=== PATIENT | male | born 1960 | race Caucasian/White ===

== ENCOUNTER 2024-07-19 15:29 | Observation (INO) | payer OTHER ==
--- OUTSIDE RECORDS SUMMARY | 2024-07-19 15:32 | XMS REPORT | Continuity of Care Document ---
Author Name Unknown Address [address] [facility] [address] [place] [address] [facility] thconnect Address [address] [facility] [address] [place] [address] Care Team Providers Care Test Kitchen Home Economist Name Role Phone Cecy ROMATresa Primary Care Physician [phone] Josué Crouch Attending Clinician Unavailable Jasson Pretty Attending Clinician Unavailable Pao Villagomez Attending Clinician Unavai isauro Provider, Viviana Rubin Attending Clinician Long Chu Attending Clinician Unavailable Long Hardy Admitting Clinician Unavailable Payers Payer Name Policy Type Policy Number Effective Date Expirati on Date Source Problems Condition Name Condition Details Condition Category Status Onset Date Resolution Date Last Treatment Date Treating Clinician Comments Source Problem Condition [facility] ([place] Allergies, Adverse Reactions, Alerts Allergy Name Allergy Type Status Severity Reaction(s) Onset Date Inactive Date Treating Clinician Comments Source codeine Propensi ty to adverse reaction to drug Active 2023-09 005 00:00: 00 Omar Espino venlafax ine DA Active U 9 00:00: 00 STLSJX codeine DA Active SV Anaphylaxis 6 00:00: 00 STLSJX codeine Allergy to substanc e Active [facility] ([place]) Family History Family Member Diagnosis Comments Start Date Stop Date [facility] e Father Family Coronary Jana ry Disease? Yes [facility] ([place]) Father Family Diabetes? Yes [facility] ([place]) Social History Social Habit Start Date Stop Date Quantity Comments Source Sex Assigned At 1960 00:00:00 1960 00:00:00 Male [facility] ([place]) Smoking Status Start Date Stop Date Source Unknown if ever smoked [facility] ([place]) Medications Ordered Medication Name Filled Medication Name Start Date Stop Date Current Medication? Ordering Clinician Indication Dosage Frequency Signature (SIG) Comments Components Source cyclobenzap rine 10 mg tablet 2023-09 00:00: 00 Yes 1mg Omar Espino ibuprofen 600 mg tablet 2023-09 0 00:00: 00 Yes 1mg Omar Espino metformin ER 500 mg tablet,exte nded release 24 hr 03-16 00:00: 00 Yes 1mg Omar Espino terazosin 10 mg capsule 03-16 00:00: 00 Yes 1mg Omar Espino tamsulosin 0.4 mg capsule - 00:00: 00 Yes 1mg Omar Espino carbamazepi ne 200 mg tablet - 00:00: 00 Yes mg Omar Espino duloxetine 30 mg capsule,del ayed release - 00:00: 00 Yes mg Omar Espino gabapentin 600 mg tablet - 00:00: 00 Yes mg Omar Espino aripiprazol e 10 mg tablet 11-05 00:00: 00 Yes mg Omar Espino TAKE ONE (1) CAPSULE(S) BY MOUTH EVERY MORNING. 11-05 00:00: 00 Yes Omar Espino TAKE TWO (2) TABLET(S) BY MOUTH EVERY MORNING. 11-05 00:00: 00 Yes Omar Espino TAKE ONE (1) CAPSULE(S) BY MOUTH MORNING. 11-05 00:00: 00 Yes Omar Espino TAKE ONE (1) TABLET(S) BY MOUTH THREE TIMES A DAY. 14 00:00: 00 Yes Omar Espino TAKE ONE (1) TABLET(S) BY MOUTH EVERY MORNING. 2022-0918 00:00: 00 Yes Omar Espino Meloxicam Meloxicam 02-26 21:30: 00 Yes 7.5MG Daily [facility] ([place] Gabapentin Gabapentin 02-26 15:41: 00 Yes 900MG Three Times Daily [facility] ([place]) Omeprazole Omeprazole 02-26 15:41: 00 Yes 20MG Daily [facility] ([place]) Pravastatin Sodium Pravastatin Sodium 02-26 15:41: 00 Yes 10MG Bedtime [facility] ([place] Terazosin Hcl Terazosin Hcl 02-26 15:41: 00 Yes 2MG Daily [facility] ([place]) Carbamazepi ne Carbamazepi ne 02-26 15:41: 00 Yes 400MG Bedtime [facility] ([place] Divalproex Sodium Divalproex Sodium 02-26 15:41: 00 Yes 1500MG Bedtime [facility] ([place] Duloxetine Duloxetine 02-26 15:41: 00 Yes 30MG Bedtime [facility] ([place] Vital Signs Vital Name Observation Time Observation Value Comments S ource WEIGHT 2021-07-27 17:04:58 112.559348 kg HEIGHT 2021-07-27 17:04:58 182.88 cm WEIGHT 2021-07-27 17:03:04 112.194370 kg HEIGHT 2021-07-27 17:03:04 182.88 cm WEIGHT 2021-07-27 17:02:18 112.003006 kg HEIGHT 2021-07-27 17:02:18 182.88 cm WEIGHT 2021-07-27 16:58:25 112.194519 kg HEIGHT 2021-07-27 16:58:25 182.88 cm WEIGHT 2021-07-27 16:53:55 114.187242 kg HEIGHT 2021-07-27 16:53:55 182.88 cm WEIGHT 2021-07-27 16:53:44 114.171353 kg HEIGHT 2021-07-27 16:53:44 182.88 cm WEIGHT 2021-07-27 16:53:26 114.726466 kg HEIGHT 2021-07-27 16:53:26 182.88 cm WEIGHT 2021-07-27 16:49:42 114.067442 kg HEIGHT 2021-07-27 16:49:42 182.88 cm WEIGHT 2021-07-27 16:49:21 114.801515 kg HEIGHT 2021-07-27 16:49:21 182.88 cm WEIGHT 2021-07-27 16:49:10 114.821955 kg HEIGHT 2021-07-27 16:49:10 182.88 cm WEIGHT 2021-07-27 16:48:39 114.177273 kg HEIGHT 2021-07-27 16:48:39 182.88 cm WEIGHT 2020-03-01 05:59:00 112.870434 kg HEIGHT 2020-03-01 05:59:00 182.88 cm BP Systolic 2024-06-26 14:44:00 155 mm[Hg] Step hen F Srinivas BP Diastolic 2024-06-26 14:44:00 91 mm[Hg] Quang phen F Srinivas Weight Measured 2024-06-26 14:44:00 234.80 pounds Omar F Srinivas Height Measured 2024-06-26 14:44:00 73.00 inches Omar F Srinivas Body Temperature 2024-06-26 14:44:00 98.40 degrees Omar F Srinivas Heart Rate 2024-06-26 14:44:00 77.00 /min Hailee en F Srinivas Respiratory Rate 2024-06-26 14:44:00 20.00 /min Omar F Srinivas BP Systolic 2024-03-16 17:55:00 134 mm[Hg] Step hen F Srinivas BP Diastolic 2024-03-16 17:55:00 85 mm[Hg] Quang phen F Srinivas Weight Measured 2024-03-16 17:55:00 252.40 pounds Omar F Srinivas Height Measured 2024-03-16 17:55:00 73.00 inches Omar F Srinivas Body Temperature 2024-03-16 17:55:00 98.10 degrees Omar Espino Heart Rate 2024-03-16 17:55:00 113.00 /min Step hen F Srinivas Respiratory Rate 2024-03-16 17:55:00 18.00 /min Omar F Srinivas Respiratory Rate 2024-02-11 14:22:00 18.00 /min Omraevita Espino BP Systolic 2024-02-11 14:22:00 142 mm[Hg] Step hen F Srinivas BP Diastolic 2024-02-11 14:22:00 78 mm[Hg] Quang phen F Srinivas Weight Measured 2024-02-11 14:22:00 236.40 pounds Omar Espino Height Measured 2024-02-11 14:22:00 73.00 inches Omar Espino Body Temperature 2024-02-11 14:22:00 98.20 degrees Omar Espino Heart Rate 2024-02-11 14:22:00 98.00 /min Hailee en F Srinivas Heart Rate 2020-02-27 23:16:00 78 /min [facility] ([place]) Oxygen saturation by Pulse oximetry 2020-02-27 22:58:00 97 /min [facility] ([place]) Body Temperature 2020-02-27 20:46:00 98.5 [degF] [facility]. [facility]. [place] ([place]) Respiratory rate 2020-02-27 20:46:00 17 /min [facility]. [facility]. [place] ([place] BP Systolic 2020-02-27 20:46:00 142 mm[Hg] [facility] [place] ([place] BP Diastolic 2020-02-27 20:46:00 76 mm[Hg] [facility]. [facility] [place] ([place]) Height 2020-02-27 10:40:00 182.88 cm [facility] S [facility] [place] ([place]) Weight 2020-02-27 10:40:00 114.98 kg [facility] S [facility]. [place] ([place]) BMI (Body Mass Index) 2020-02-27 10:40:00 34.4 kg/m2 [facility] ([place]) Procedures Procedure Date / Time Performed Performing Clinicia n Source XR Chest 1 View Portable 2020-02-27 00:00:00 [facility] ([place]) EKG 12 Lead in Emergency Room 2020-02-27 00:00:00 [facility] ([place] Encounters Start Date/Time End Date/Time Encounter Type Admission Type Attending [facility] Care Department Encounter ID Source 2024-07-07 09:35:14 2024-07-07 09:35:14 Outpatient [facility] [id number] Omar Espino 2024-06-26 14:28:21 2024-06-26 14:28:21 Outpatient [facility] [id number] Omar Espino 2024-06-26 00:00:00 2024-06-26 00:00:00 Outpatient Visit [facility] [id number] Omar Espino 2024-06-04 11:23:16 2024-06-04 11:23:16 Outpatient [facility] [id number] Omar Espino 2024-04-12 14:50:10 2024-04-12 14:50:10 Outpatient [facility] [id number] Omar Espino 2024-03-16 17:43:01 2024-03-16 17:43:01 Outpatient [facility] [id number] Omar Espino 2024-03-16 00:00:00 2024-03-16 00:00:00 Outpatient Visit [facility] [id number] Omar Espino 2024-02-11 14:18:40 2024-02-11 14:18:40 Outpatient [facility] [id number] Omar Barba Srinivas 2024-02-11 00:00:00 2024-02-11 00:00:00 Outpatient Visit [facility]FA [id number] Omar Espino 2022-02-04 18:00:00 2022-02-04 21:20:00 Emergency TRAUMA Josué Crouch STLSJX STLSJX [id number] STLSJX 2022-01-03 00:05:00 2022-01-03 04:50:00 Emergency ER Jasson Pretty STLSJX STLSJX [id number] STLSJX 2021-10-28 12:18:00 2021-10-28 13:50:00 Emergency ER Pao Villagomez [facility] [id number] [facility] 2020-02-27 15:03:00 2020-03-02 13:34:00 [facility] [id number] [facility] 2020-02-27 15:03:00 2020-02-27 15:03:00 Admitted Inpatient ER [facility]-2SW/OBS ERVATION [id number] [facility]) Results Test Description Test Time Test Comments Results Result Co mments Source COMPREHENSIVE METABOLIC [id number] 04:37:07* Test Item Value Reference Range Interpretation Comme nts GLUCOSE (test code = 2217) 129 MG/DL 70-99 H BUN (test code = 2208) 17 MG/DL 8-23 CREATININE (test code = 2214) 1.12 MG/DL 0.80-1.40 eGFR (2020 CKD-EPI) (test co de = 07548) 74 ML/MIN/1.73 >60 CALC BUN/CREAT (test code = 2235) 15 RATIO 6-28 SODIUM (test code = 2231) 138 MEQ/L 133-146 POTASSIUM (test code = 2228) 4.4 MEQ/L 3.5-5.4 CHLORIDE (test code = 2215) 101 MEQ/L 95-107 CARBON DIOXIDE (test code = 2206) 25 MEQ/L 19-31 CALCIUM (test code = 2209) 9.8 MG/DL 8.5-10.5 PROTEIN, TOTAL (test code = 222) 7.3 G/DL 6.1-8.3 ALBUMIN (test code = 2201) 4.5 G/DL 3.5-5.2 CALC GLOBULIN (test code = 2240) 2.8 G/DL 1.9-3.7 CALC A/G RATIO (test code = 2234) 1.6 RATIO 1.0-2.6 BILIRUBIN, TOTAL (test code = 2207) 0.3 MG/DL <=1.2 ALKALINE PHOSPHATASE (test code = 2204) 98 U/L 40-123 AST (test code = 2218) 19 U/L 9-50 ALT (test code = 2219) 19 U/L 5-50 LIPID [id number] 04:37:07* Test Item Value Reference Range Interpretation Comme nts CHOLESTEROL (test code = 2210) 197 MG/DL <200 TRIGLYCERIDES (test code = 2232) 113 MG/DL <150 HDL CHOLESTEROL (test code = 2220) 50 MG/DL >39 CALC LDL CHOL (test code = 2237) 125 MG/DL <100 H NOTE: CALCULATED LDL IS BASED ON GINGER-BLACK METHOD WHICHINCLUDES ADJUSTABLE TRIGLYCERIDE:VLDL CHOLESTEROL RATIO.THIS FACTOR VARIES BY MEASURED TRIGLYCERIDE AND NON-HDLCHOLESTEROL CONCENTRATIONS WITH INCREASED CALCULATED LDL SEENIN HIGHER TRIGLYCERIDE OR LOWER NON-HDL SPECIMENS. FOR MOREINFORMATION, SEE CLIENT ANNOUNCEMENT AT [email or web address] RISK RATIO LDL/HDL (test code = 2238) 2.50 RATIO <3.55 HIV 1/2 4TH GEN, RFLX [id number] 03:21:19* Test Item Value Reference Range Interpretation Comme nts HIV 1/2 4TH GEN, RFLX CONF ( test code = 3514) NON-REACTIVE NON-REACTIVE HEMOGLOBIN [id number] 02:40:37* Test Item Value Reference Range Interpretation Comme [facility] HEMOGLOBIN A1c (test code = 96467) 6.5 % 4.2-5.6 H [employer] GUIDELINES FOR HGB A1C: PREDIABETES/INCREASED RISK . . . . . . . 5.7-6.4% DIAGNOSIS OF DIABETES . . . . . . . . . >=6.5% WITH CONFIRMATION OR APPROPRIATE SYMPTOMS NOTE: ASSAY MAY BE AFFECTED BY HEMOGLOBINOPATHIES (SICKLE CELL ANEMIA, S-C DISEASE, OTHERS) OR ARTIFICIALLY LOWERED BY DECREASED RED CELL SURVIVAL (HEMOLYTIC ANEMIAS, BLOOD LOSS, ETC.). CONSIDER ALTERNATE TESTING OR LABORATORY CONSULTATION. [id number] 13:44:00* Test Item Value Reference Range Interpretation Comme nts Chemistry (test code = NA-T) 138 mmol/L 136-145 N Chemistry (test code = K-T) 4.2 mmol/L 3.5-5.1 N Chemistry (test code = CL) 106 mmol/L 98-107 N Chemistry (test code = CO2) 23 mmol/L 22-29 N Chemistry (test code = ANGP) 13 mmol/L 10-20 N Chemistry (test code = BUN) 11 mg/dL 8.4-25.7 N Chemistry (test code = CREATT) 0.82 mg/dL 0.7-1.3 N Chemistry (test code = EGFRMDRD) Greater than 90 Reference Range for Estimated GFR: Greater than 90 mL/min/1.73 m2NOTE:The MDRD equation has not been validated for use with theelderly (over 70 years of age), women, patientswith serious comorbid condition or persons with extremes ofbody size, muscle mass, or nutritional status. Chemistry (test code = GLU-T) 110 mg/dL 70-105 H Chemistry (test code = CA) 9.0 mg/dL 7.8-10.44 N Chemistry (test code = TBILI-T) 0.5 mg/dL 0.2-1.2 N Chemistry (test code = TP) 6.9 g/dL 6.0-8.3 N Chemistry (test code = ALB) 4.3 g/dL 3.5-5.0 N Chemistry (test code = GLOB) 2.6 g/dL 2.4-3.5 N Chemistry (test code = AG) 1.7 g/dL 1.2-2.2 N Chemistry (test code = ALP) 85 U/L 40-110 N Chemistry (test code = AST) 12 U/L 5-34 N Chemistry (test code = ALT) 20 U/L 8-55 N [id number] 13:44:00* Test Item Value Reference Range Interpretation Comme nts Chemistry (test code = CK) 69 U/L 30-200 N [id number] 13:44:00* Test Item Value Reference Range Interpretation Comme nts Chemistry (test code = LIP) 17 U/L 8-78 N [id number] 13:35:00* Test Item Value Reference Range Interpretation Comme nts Chemistry (test code = TROPI-R) Less than 0.010 ng/mL < 0.028 * Reference Range 0.00 - 0.028 ng/mL Negative 0.029 - 0.29 ng/mL Indeterminate Greater or Equal to 0.3 ng/mL Strongly suggests [place] Chemistry - BNP, HgbA1c, [id number] 13:34:00* Test Item Value Reference Range [facility]ation [facility] - BNP, HgbA1c, PTH i (test code = BNP) 88.1 pg/mL 0-100 N [id number] 13:19:00* Test Item Value Reference Range Interpretation [facility] Coagulation (test code = PT-T) 14.1 sec 12.0-14.7 N Coagulation (test code = INR) 1.1 ATTENTION: READ CAREFULLY The recommended therapeutic ranges for oral anticoagulanttreatments are: ------ Low Intensity: 1.5 - 2.0 Moderate Intensity: 2.0 - 3.0 High Intensity (1): 2.5 - 3.5 High Intensity (2): 3.0 - 4.0 CRITICAL: > 4.0 Anticoagulant? NONEMedical Necessity SUSPECT COAGULOPATHYAnticoagulant? NONEMedical Necessity: [id number] 13:19:00* Test Item Value Reference Range Interpretation [facility] Coagulation (test code = PTT) 28.7 sec 22.9-36.1 N Anticoagulant? NONEMedical Necessity SUSPECT COAGULOPATHYAnticoagulant? NONEMedical Necessity: [id number] 13:05:00* Test Item Value Reference Range Interpretation Comme nts Hematology (test code = WBCT) 5.4 thou/uL 4.8-10.8 N Hematology (test code = RBCT) 4.61 mill/uL 4.70-6.10 L Hematology (test code = HGBT) 13.6 g/dL 14.0-18.0 L Hematology (test code = HCTT) 40.5 % 42.0-52.0 L Hematology (test code = MCV) 87.9 fL 78.0-98.0 N Hematology (test code = MCH) 29.5 pg 27.0-31.0 N Hematology (test code = MCHC) 33.6 g/dL 32.0-36.0 N Hematology (test code = RDW) 11.8 % 11.5-14.5 N Hematology (test code = PLTT) 224 thou/uL 130-400 N Hematology (test code = MPV) 6.7 fL 7.4-10.4 L Hematology (test code = %NEUT) 55.1 % 42.0-75.0 N Hematology (test code = %LYMPH) 34.9 % 21.0-51.0 N Hematology (test code = %MONO) 7.2 % 0.0-10.0 N Hematology (test code = %EOS) 2.6 % 0.0-10.0 N Hematology (test code = %BASO) 0.3 % 0.0-1.0 N Hematology (test code = NEUT#) 3.0 thou/uL 1.40-6.50 N Hematology (test code = LYMPH#) 1.9 thou/uL 1.20-3.40 N Hematology (test code = MONO#) 0.4 thou/uL 0.11-0.59 N Hematology (test code = EOS#) 0.1 thou/uL 0.0-0.7 N Hematology (test code = BASO#) 0.0 thou/uL 0.0-0.2 N [id number] 05:52:00* Test Item Value Reference Range Interpretation Comme nts Chemistry (test code = NA-T) 139 mmol/L 136-145 N Chemistry (test code = K-T) 4.6 mmol/L 3.5-5.1 N Chemistry (test code = CL) 105 mmol/L 98-107 N Chemistry (test code = CO2) 26 mmol/L 22-29 N Chemistry (test code = ANGP) 13 mmol/L 10-20 N Chemistry (test code = BUN) 15 mg/dL 8.4-25.7 N Chemistry (test code = CREATT) 0.81 mg/dL 0.7-1.3 N Chemistry (test code = EGFRMDRD) Greater than 90 Reference Range for Estimated GFR: Greater than 90 mL/min/1.73 m2NOTE:The MDRD equation has not been validated for use with theelderly (over 70 years of age), women, patientswith serious comorbid condition or persons with extremes ofbody size, muscle mass, or nutritional status. Chemistry (test code = GLU-T) 118 mg/dL 70-105 H Chemistry (test code = CA) 8.1 mg/dL 7.8-10.44 N [id number] 05:52:00* Test Item Value Reference Range Interpretation Comme nts Chemistry (test code = MG) 2.2 mg/dL 1.6-2.6 N [id number] 05:21:00* Test Item Value Reference Range Interpretation Comme nts Hematology (test code = HGBT) 12.6 g/dL 14.0-18.0 L Hematology (test code = HCTT) 37.9 % 42.0-52.0 L Hematology (test code = PLTT) 195 thou/uL 130-400 N [id number] 06:05:00* Test Item Value Reference Range Interpretation Comme nts Chemistry (test code = NA-T) 141 mmol/L 136-145 N Chemistry (test code = K-T) 4.4 mmol/L 3.5-5.1 N Chemistry (test code = CL) 105 mmol/L 98-107 N Chemistry (test code = CO2) 28 mmol/L 22-29 N Chemistry (test code = ANGP) 12 mmol/L 10-20 N Chemistry (test code = BUN) 15 mg/dL 8.4-25.7 N Chemistry (test code = CREATT) 0.76 mg/dL 0.7-1.3 N Chemistry (test code = EGFRMDRD) Greater than 90 Reference Range for Estimated GFR: Greater than 90 mL/min/1.73 m2NOTE:The MDRD equation has not been validated for use with theelderly (over 70 years of age), women, patientswith serious comorbid condition or persons with extremes ofbody size, muscle mass, or nutritional status. Chemistry (test code = GLU-T) 109 mg/dL 70-105 H Chemistry (test code = CA) 8.5 mg/dL 7.8-10.44 N [id number] 05:44:00* Test Item Value Reference Range Interpretation Comme nts Hematology (test code = WBCT) 4.3 thou/uL 4.8-10.8 L Hematology (test code = RBCT) 4.45 mill/uL 4.70-6.10 L Hematology (test code = HGBT) 12.6 g/dL 14.0-18.0 L Hematology (test code = HCTT) 38.9 % 42.0-52.0 L Hematology (test code = MCV) 87.4 fL 78.0-98.0 N Hematology (test code = MCH) 28.4 pg 27.0-31.0 N Hematology (test code = MCHC) 32.5 g/dL 32.0-36.0 N Hematology (test code = RDW) 11.5 % 11.5-14.5 N Hematology (test code = PLTT) 184 thou/uL 130-400 N Hematology (test code = MPV) 7.2 fL 7.4-10.4 L Hematology (test code = %NEUT) 43.6 % 42.0-75.0 N Hematology (test code = %LYMPH) 40.6 % 21.0-51.0 N Hematology (test code = %MONO) 12.8 % 0.0-10.0 H Hematology (test code = %EOS) 2.4 % 0.0-10.0 N Hematology (test code = %BASO) 0.7 % 0.0-1.0 N Hematology (test code = NEUT#) 1.9 thou/uL 1.40-6.50 N Hematology (test code = LYMPH#) 1.8 thou/uL 1.20-3.40 N Hematology (test code = MONO#) 0.6 thou/uL 0.11-0.59 H Hematology (test code = EOS#) 0.1 thou/uL 0.0-0.7 N Hematology (test code = BASO#) 0.0 thou/uL 0.0-0.2 N Reference Lab [id number] 14:19:00* Test Item Value Reference Range Interpretation Comme [facility] Reference Lab Testing (test code = BNJEV20D) Not Detected NotDetected Negative (Not D etected) results do not preclude infectionwith SARS-CoV-2 virus, and should not be the sole basis of apatient management decision. Consider testing for otherviruses if clinically indicated.The use of this assay as an In vitro diagnostic under [facility] Emergency Use Authorization (EUA) is limited tolaboratories that are certified under the ClinicalLaboratory Improvement Amendments of 1988 (CLIA), 42 U.S.C.263a, to perform high complexity tests. Comment: ReswabReason for Testing: Other - See CommentChemistry - Specials 2020-02-28 17:53:00* Test Item Value Reference Range Interpretation [facility] Chemistry - Specials (test code = PROCALC) 0.02 ng/mL <0.5 ng/mL Repre sents a low risk of severe sepsis and/or septic shock>2 ng/mL Represents a high risk of severe sepsis and/or septic shock.Concentrations <0.5 ng/mL do not exclude an infection, onaccount of localized infections (without septic signs) whichcan be associated with such low concentrations, or asystemic infection in its initial stages (less than 6hours).Increased procalcitonin can occur without infection.Procalcitonin concentrations between 0.5 and 2.0 ng/mLshould be interpreted taking into account the patient'shistory. It is recommended to retest Procalcitonin within6-24 hours if any concentrations <2 ng/mL are obtained. Reference Lab [id number] 14:14:00* Test Item Value Reference Range Interpretation Comme [facility] Reference Lab Testing (test code = TAVQD01L) Not Detected NotDetected Negative (Not D etected) results do not preclude infectionwith SARS-CoV-2 virus, and should not be the sole basis of apatient management decision. Consider testing for otherviruses if clinically indicated.The use of this assay as an In vitro diagnostic under [facility] Use Authorization (EUA) is limited tolaboratories that are certified under the ClinicalLaboratory Improvement Amendments of 1988 (CLIA), 42 U.S.C.263a, to perform high complexity tests. Comment: AsymptomaticReason for Testing: Other - See [id number] 20:28:00* Test Item Value Reference Range Interpretation Comme nts Chemistry (test code = TROPI-T) 0.016 ng/mL < 0.028 Reference Range 0.00 - 0.028 ng/mL Negative 0.029 - 0.29 ng/mL Indeterminate Greater or Equal to 0.3 ng/mL Strongly suggests [place] Serum or plasma troponin i.cardiac measurement by detection limit <= 0.01 NG/ml ([id number] 19:42:00* Test Item Value Reference Range Interpretation Comme nts Troponin I (test code = 68564-6) 0.016 ng/mL <0.028 [facility]Chemistry - [id number] 17:19:00* Test Item Value Reference Range Interpretation Comme nts Chemistry - Specials (test c ode = TSH3) 0.2457 uIU/mL 0.35-4.94 L [id number] 16:31:00* Test Item Value Reference Range Interpretation Comme nts Chemistry (test code = MG) 2.2 mg/dL 1.6-2.6 N [id number] 16:29:00* Test Item Value Reference Range Interpretation Comme nts Chemistry (test code = PHOS-T) 2.6 mg/dL 2.3-4.7 N [id number] 15:55:00* Test Item Value Reference Range Interpretation Comme nts Chemistry (test code = TROPI-T) 0.011 ng/mL < 0.028 Reference Range 0.00 - 0.028 ng/mL Negative 0.029 - 0.29 ng/mL Indeterminate Greater or Equal to 0.3 ng/mL Strongly suggests [place] Serum or plasma phosphate measurement (mass/volume)2020-02-27 15:22:00* Test Item Value Reference Range Interpretation Comme nts Phosphorus Level (test code = 2777-1) 2.6 mg/dL 2.3-4.7 [facility])Serum or plasma magnesium measurement (mass/volume)2020-02-27 15:22:00* Test Item Value Reference Range Interpretation Comme nts Magnesium Level (test code = 42266-0) 2.2 mg/dL 1.6-2.6 [facility])Serum or plasma thyrotropin measurement by detection limit <= 0.005 miu/l (units/[id number] 15:22:00* Test Item Value Reference Range Interpretation Comme nts TSH 3rd Generation (test cod e = 25602-2) 0.2457 uIU/mL 0.35-4.94 [facility])Chemistry - BNP, HgbA1c, [id number] 11:52:00* Test Item Value Reference Range Interpretation Comme nts Chemistry - BNP, HgbA1c, PTH i (test code = BNP) 100.0 pg/mL 0-100 N [id number] 11:30:00* Test Item Value Reference Range Interpretation Comme nts Chemistry (test code = TROPI-R) 0.010 ng/mL < 0.028 Reference Range 0.00 - 0.028 ng/mL Negative 0.029 - 0.29 ng/mL Indeterminate Greater or Equal to 0.3 ng/mL Strongly suggests [place] [id number] 11:26:00* Test Item Value Reference Range Interpretation Comme nts Chemistry (test code = NA-T) 138 mmol/L 136-145 N Chemistry (test code = K-T) 4.3 mmol/L 3.5-5.1 N Chemistry (test code = CL) 107 mmol/L 98-107 N Chemistry (test code = CO2) 22 mmol/L 22-29 N Chemistry (test code = ANGP) 13 mmol/L 10-20 N Chemistry (test code = BUN) 14 mg/dL 8.4-25.7 N Chemistry (test code = CREATT) 0.80 mg/dL 0.7-1.3 N Chemistry (test code = EGFRMDRD) Greater than 90 Reference Range for Estimated GFR: Greater than 90 mL/min/1.73 m2NOTE:The MDRD equation has not been validated for use with theelderly (over 70 years of age), women, patientswith serious comorbid condition or persons with extremes ofbody size, muscle mass, or nutritional status. Chemistry (test code = GLU-T) 122 mg/dL 70-105 H Chemistry (test code = CA) 7.9 mg/dL 7.8-10.44 N Chemistry (test code = TBILI-T) 0.3 mg/dL 0.2-1.2 N Chemistry (test code = TP) 6.5 g/dL 6.0-8.3 N Chemistry (test code = ALB) 3.6 g/dL 3.5-5.0 N Chemistry (test code = GLOB) 2.9 g/dL 2.4-3.5 N Chemistry (test code = AG) 1.2 g/dL 1.2-2.2 N Chemistry (test code = ALP) 67 U/L 40-110 N Chemistry (test code = AST) 16 U/L 5-34 N Chemistry (test code = ALT) 17 U/L 8-55 N Fwjnlzlol3111-34-99 11:26:00* Test Item Value Reference Range Interpretation Comme nts Chemistry (test code = CK) 48 U/L 30-200 N Dsukpumsx1827-56-18 11:26:00* Test Item Value Reference Range Interpretation Comme nts Chemistry (test code = LIP) 23 U/L 8-78 N Zfbmvsjgiz2018-32-46 11:18:00* Test Item Value Reference Range Interpretation Comme nts Hematology (test code = WBCT) 3.9 thou/uL 4.8-10.8 L Hematology (test code = RBCT) 4.70 mill/uL 4.70-6.10 N Hematology (test code = HGBT) 14.3 g/dL 14.0-18.0 N Hematology (test code = HCTT) 41.2 % 42.0-52.0 L Hematology (test code = MCV) 87.6 fL 78.0-98.0 N Hematology (test code = MCH) 30.4 pg 27.0-31.0 N Hematology (test code = MCHC) 34.7 g/dL 32.0-36.0 N Hematology (test code = RDW) 11.7 % 11.5-14.5 N Hematology (test code = PLTT) 139 thou/uL 130-400 N Hematology (test code = MPV) 7.2 fL 7.4-10.4 L Hematology (test code = %NEUT) 59.9 % 42.0-75.0 N Hematology (test code = %LYMPH) 26.5 % 21.0-51.0 N Hematology (test code = %MONO) 12.8 % 0.0-10.0 H Hematology (test code = %EOS) 0.5 % 0.0-10.0 N Hematology (test code = %BASO) 0.3 % 0.0-1.0 N Hematology (test code = NEUT#) 2.3 thou/uL 1.40-6.50 N Hematology (test code = LYMPH#) 1.0 thou/uL 1.20-3.40 L Hematology (test code = MONO#) 0.5 thou/uL 0.11-0.59 N Hematology (test code = EOS#) 0.0 thou/uL 0.0-0.7 N Hematology (test code = BASO#) 0.0 thou/uL 0.0-0.2 N Serum or plasma sodium measurement (moles/volume)2020-02-27 10:50:00* Test Item Value Reference Range Interpretation Comme nts Sodium Level (test code = 2951-2) 138 mmol/L 136-145 [facility]Serum or plasma potassium measurement (moles/volume)2020-02-27 10:50:00* Test Item Value Reference Range Interpretation Comme nts Potassium Level (test code = 2823-3) 4.3 mmol/L 3.5-5.1 [facility]Serum or plasma chloride measurement (moles/volume)2020-02-27 10:50:00* Test Item Value Reference Range Interpretation Comme nts Chloride Level (test code = 2075-0) 107 mmol/L 98-107 [facility])Serum or plasma carbon dioxide, total measurement (moles/volume)2020-02-27 10:50:00* Test Item Value Reference Range Interpretation Comme nts Carbon Dioxide Level (test c ode = 2028-9) 22 mmol/L 22-29 [facility])Serum or plasma anion uny8864-87-61 10:50:00* Test Item Value Reference Range Interpretation Comme [facility] Anion Gap (test code = 68317-8) 13 mmol/L 10-20 [facility])Serum or plasma urea nitrogen measurement (mass/volume)2020-02-27 10:50:00* Test Item Value Reference Range Interpretation Comme [facility] Blood Urea Nitrogen (test co de = 3094-0) 14 mg/dL 8.4-25.7 [facility])Serum or plasma creatinine measurement (mass/volume)2020-02-27 10:50:00* Test Item Value Reference Range Interpretation Comme [facility] Creatinine (test code = 2160-0) 0.80 mg/dL 0.7-1.3 [facility])Estimated glomerular filtration rate (GFR) by Modification of Diet in Renal Disease (2020-02-27 10:50:00* Test Item Value Reference Range Interpretation Comme [facility] Estimated GFR (MDRD) (test code = 22872-5) Greater than 90 [facility])Glucose [Mass/volume] in Serum or Plasma 2020-02-27 10:50:00* Test Item Value Reference Range Interpretation Comme [facility] Glucose Level (test code = 2345-7) 122 mg/dL 70-105 [facility])Serum or plasma calcium measurement (mass/volume)2020-02-27 10:50:00* Test Item Value Reference Range Interpretation Comme [facility] Calcium Level (test code = 91718-8) 7.9 mg/dL 7.8-10.44 [facility])Serum or plasma total bilirubin measurement (mass/volume)2020-02-27 10:50:00* Test Item Value Reference Range Interpretation Comme [facility] Total Bilirubin (test code = 1975-2) 0.3 mg/dL 0.2-1.2 [facility])Serum or plasma protein measurement (mass/volume)2020-02-27 10:50:00* Test Item Value Reference Range Interpretation Comme [facility] Serum Total Protein (test co de = 2885-2) 6.5 g/dL 6.0-8.3 [facility]Serum or plasma albumin measurement by bromocresol green (BCG) dye binding method (cv9530-34-59 10:50:00* Test Item Value Reference Range Interpretation Comme [facility] Albumin (test code = 09036-2) 3.6 g/dL 3.5-5.0 [facility])Globulin [Mass/volume] in Serum by calculation 2020-02-27 10:50:00* Test Item Value Reference Range Interpretation Comme nts Globulin (test code = 39823-6) 2.9 g/dL 2.4-3.5 [facility])Albumin/Globulin [Mass Ratio] in Serum or Ohivin1186-16-54 10:50:00* Test Item Value Reference Range Interpretation Comme [facility] Albumin/Globulin Ratio (test code = 1759-0) 1.2 g/dL 1.2-2.2 [facility]Alkaline phosphatase [Enzymatic activity/volume] in Serum or Xlkgas8802-10-69 10:50:00* Test Item Value Reference Range Interpretation Comme nts Alkaline Phosphatase (test c ode = 6768-6) 67 U/L 40-110 [facility]Serum or plasma aspartate aminotransferase measurement (enzymatic activity/volume)2020-02-27 10:50:00* Test Item Value Reference Range Interpretation Comme [facility] Aspartate Amino Transf (AST/ SGOT) (test code = 1920-8) 16 U/L 5-34 [facility]Creatine kinase [Enzymatic activity/volume] in Serum or Ablbtx1651-60-06 10:50:00* Test Item Value Reference Range Interpretation Comme nts Creatine Kinase (test code = 2157-6) 48 U/L 30-200 [facility])Serum or plasma alanine aminotransferase measurement without P-5'-P (enzymatic sxexpj6063-22-65 10:50:00* Test Item Value Reference Range Interpretation Comme nts Alanine Aminotransferase (AL T/SGPT) (test code = 1744-2) 17 U/L 8-55 [facility])Serum or plasma lipase measurement (enzymatic activity/volume)2020-02-27 10:50:00* Test Item Value Reference Range Interpretation Comme nts Lipase (test code = 3040-3) 23 U/L 8-78 [facility])Leukocytes [#/volume] in Blood by Automated povsp6180-85-61 10:50:00* Test Item Value Reference Range Interpretation Comme nts White Blood Count (test code = 6690-2) 3.9 thou/uL 4.8-10.8 [facility])Blood erythrocytes automated count (number/volume)2020-02-27 10:50:00* Test Item Value Reference Range Interpretation Comme nts Red Blood Count (test code = 789-8) 4.70 mill/uL 4.70-6.10 [facility])Blood hemoglobin measurement (mass/volume) 2020-02-27 10:50:00* Test Item Value Reference Range Interpretation Comme nts Hemoglobin (test code = 718-7) 14.3 g/dL 14.0-18.0 [facility])Automated erythrocyte mean corpuscular volume 2020-02-27 10:50:00* Test Item Value Reference Range Interpretation Comme nts Mean Corpuscular Volume (wojciech t code = 787-2) 87.6 fL 78.0-98.0 [facility])Automated erythrocyte mean corpuscular hemoglobin (mass per erythrocyte)2020-02-27 10:50:00* Test Item Value Reference Range Interpretation Comme nts Mean Corpuscular Hemoglobin (test code = 785-6) 30.4 pg 27.0-31.0 [facility])Automated erythrocyte mean corpuscular hemoglobin concentration measurement (mass/gbj5603-16-54 10:50:00* Test Item Value Reference Range Interpretation Comme nts Mean Corpuscular Hemoglobin Concent (test code = 786-4) 34.7 g/dL 32.0-36.0 [facility])Automated erythrocyte distribution width ratio 2020-02-27 10:50:00* Test Item Value Reference Range Interpretation Comme nts Red Cell Distribution Width (test code = 788-0) 11.7 % 11.5-14.5 [facility])Automated blood platelet count (count/volume) 2020-02-27 10:50:00* Test Item Value Reference Range Interpretation Comme [facility] Platelet Count (test code = 777-3) 139 thou/uL 130-400 [facility])Automated blood platelet mean perkeh8703-29-26 10:50:00* Test Item Value Reference Range Interpretation Comme [facility] Mean Platelet Volume (test c ode = 78845-6) 7.2 fL 7.4-10.4 [facility])Automated blood neutrophils/100 leukocytes 2020-02-27 10:50:00* Test Item Value Reference Range Interpretation Comme [facility] Neutrophils % (test code = 770-8) 59.9 % 42.0-75.0 [facility])Lymphocytes/100 leukocytes in Blood by Automated hgczh8947-49-62 10:50:00* Test Item Value Reference Range Interpretation Comme [facility] Lymphocytes % (test code = 736-9) 26.5 % 21.0-51.0 [facility])Automated blood monocytes/100 leukocytes 2020-02-27 10:50:00* Test Item Value Reference Range Interpretation Comme nts Monocytes % (test code = 5905-5) 12.8 % 0.0-10.0 [facility])Automated blood eosinophils/100 leukocytes 2020-02-27 10:50:00* Test Item Value Reference Range Interpretation Comme nts Eosinophils % (test code = 713-8) 0.5 % 0.0-10.0 [facility]Automated blood basophils/100 leukocytes 2020-02-27 10:50:00* Test Item Value Reference Range Interpretation Comme nts Basophils % (test code = 706-2) 0.3 % 0.0-1.0 [facility]Blood neutrophils automated count (number/volume)2020-02-27 10:50:00* Test Item Value Reference Range Interpretation Comme nts Neutrophils # (test code = 751-8) 2.3 thou/uL 1.40-6.50 [facility]Lymphocytes [#/volume] in Blood by Automated dbxga2779-42-06 10:50:00* Test Item Value Reference Range Interpretation Comme nts Lymphocytes # (test code = 731-0) 1.0 thou/uL 1.20-3.40 [facility]Blood monocytes automated count (number/volume)2020-02-27 10:50:00* Test Item Value Reference Range Interpretation Comme nts Monocytes # (test code = 742-7) 0.5 thou/uL 0.11-0.59 [facility]Blood eosinophils automated count (count/volume)2020-02-27 10:50:00* Test Item Value Reference Range Interpretation Comme nts Eosinophils # (test code = 711-2) 0.0 thou/uL 0.0-0.7 [facility]Automated blood basophil count (count/volume) 2020-02-27 10:50:00* Test Item Value Reference Range Interpretation Comme nts Basophils # (test code = 704-7) 0.0 thou/uL 0.0-0.2 [facility]CT Brain WO Con Name: ROSEMARY STAPLES : 1960 Sex: [facility] Pt Name: ROSEMARY STAPLES [address] Phys: [place]é [place] [address] : 1960 Age: 61 SEX:M Exam Date: 02/04/22 Status: REG ER Acct: [id number] Loc: [facility] Pt Unit #: [id number] Report #: [id number] CC: Josué Crouch CAT SCAN REPORT Order # Category/Exam [id number] CT/CT Brain WO Con ([id number]): . Results CT Brain WO Con HISTORY: Head injury COMPARISON: 10/28/2021 exam FINDINGS: The ventricular and cisternal system is within normal limits.There are no signs of intracerebral hemorrhage or extra-axial fluid collections. No skull fractures. Right frontal scalp hematoma is present. Mastoid air cells are clear. Mucosal disease and postop changes are seen within the sinuses. IMPRESSION: No acute intracranial abnormalities. Reported By: Gulshan Han MD Electronically Signed Date/Time: 02/04/221830 Technologist: MARY Dictated Date/Time: 02/04/221829 Transcribed Date/Time:CT Cervical Spine WO Con Name: ROSEMARY STAPLES : 1960 Sex: [facility] Pt Name: ROSEMARY STAPLES [address] [facility] Phys: Josué [place] [address] : 1960 Age: 61 SEX:M Exam Date: 02/04/22 Status: REG ER Acct: [id number] Loc: [facility] Pt Unit #: [id number] Report #: [id number] CC: Josué Crouch DO CAT SCAN REPORT Order # Category/Exam [id number] CT/CT Cervical Spine WO Con ([id number]): . Results CT Cervical Spine WO ConHISTORY: Neck injury COMPARISON: None. FINDINGS: Vertebral bodies are normal in height. Degenerative disc narrowing is seen at the C5-6 and C6-7 levels. At C5-6 posterior osteophytic changes are associated with a mild degree of canal stenosis. There ismoderate bilateral foraminal narrowing. No significant right-sided foraminal narrowing at C6-7. Mild left- sided foraminal narrowing and mild canalnarrowing. The facets are in normal alignment. There is no CT evidence for fracture. The lung apices are clear of any infiltrative process. IMPRESSION: No CT evidence of fracture of the cervical spine. Reported By: Gulshan Han MD Electronically Signed Date/Time: 02/04/221833 Technologist: MARY Dictated Date/Time: 02/04/221831 Transcribed Date/Time:XR Chest 1 View Portable Name: ROSEMARY STAPLES : 1960 Sex: [facility] Pt Name: ROSEMARY STAPLES [address] Phys: [place] [address] : 1960 Age: 61 SEX:M Exam Date: 01/03/22 Status: DEP ER Acct: [id number] Loc: [facility] Pt Unit #: [id number] Report #: [id number] CC: Jasson Pretty MD IMAGING SERVICES REPORT Order # Category/Exam [id number] RAD/XR Chest 1 View Portable ([id number]): . Results EXAM: XR Chest 1 View Portable INDICATION: Chest pain COMPARISON(S): 10/28/2021 TECHNIQUE: Single portable AP view of the chest.FINDINGS: Support Apparatus: Monitor leads overlie the thorax. Lung Parenchyma: Symmetric lung volumes. No focal consolidation. Pleura: No pneumothorax or pleural effusion. Mediastinum: The cardiomediastinal silhouette is normal in size and configuration. Musculoskeletal: Deformity of the distal right clavicle from remote injury. Mild thoracic spondylosis. No acute osseous abnormality. IMPRESSION: No acute cardiopulmonary process. Reported By: Vincenzo Reeves DO Electronically Signed Date/Time: 01/03/22718 Technologist: Dictated Date/Time: 01/03/22716 Transcribed Date/Time:XR Chest 1 View Portable [facility] ROSEMARY STAPLES : 1960 [facility] Pt Name: ROSEMARY STAPLES [address] Phys: [place] [address] : 1960 Age: 61 SEX:M [phone] Exam Date: 10/28/21 Status: REG ER Acct: [id number] Loc: [facility] Pt Unit #: [id number] Report #: [id number] CC: PAO VILLAGOMEZ MD IMAGING SERVICES REPORT Order # Category/Exam [id number] RAD/XR Chest 1 View Portable ([id number]): . Results EXAM: Single view of the chest HISTORY: Chest pain COMPARISON: 02/27/2020 FINDINGS: Single view of the chest shows an enlarged but stable cardiomediastinal silhouette. Atherosclerotic calcifications are seen in the aorta. There is no evidence of consolidation, mass, or pleural effusion. No acute osseous abnormality. There are chronic changes in the distal right clavicle. IMPRESSION:No evidence of acute cardiopulmonary disease Reported By: Massimo Torres MD Electronically Signed Date/Time: 10/28/21 1322 Technologist: WILLOW Dictated Date/Time: 10/28/21 1321 Transcribed Date/Time:CT Brain WO Con [facility]: ROSEMARY STAPLES : 1960 Sex: [facility] Pt Name: ROSEMARY STAPLES [address] Phys: PAO VILLAGOMEZ MD [place] [address] : 1960 Age: 61 SEX:M [phone] Exam Date: 10/28/21 Status: REG ER Acct: [id number] Loc: [facility] Pt Unit #: [id number] Report #: [id number] CC: ED TEMP PROVIDER PAO VILLAGOMEZ MD CAT SCAN REPORT Order # Category/Exam [id number] CT/CT Brain WO Con ([id number]): . Results EXAM: CT brain without contrast HISTORY: Weakness and left facial drooping COMPARISON: None TECHNIQUE: Multiple contiguous axial images were obtained and a CT of the brain without contrast. Sagittal and coronal reformats were performed. FINDINGS: The brain is normal in morphology and attenuation without focal lesions or confluent areas of infarction. There is no evidence of hydrocephalus, intracranial hemorrhage, or extra-axial fluid collection. The calvarium and overlying soft tissues are unremarkable. Postsurgical changes are seen in the face and sinuses. The visualized paranasal sinuses and mastoid air cells are well aerated. IMPRESSION: No evidence of acute intracranial ab normality Reported By: Massimo Torres MD Electronically Signed Date/Time: 10/28/21 1349 Technologist: FV Dictated Date/Time: 10/28/21 1338 Transcribed Date/Time:[facility] [employer] Phys: [place] [address] : 1960 Age: 59 SEX:M [phone] Exam Date: 02/27/20 Status: REG ERAcct: [id number] Loc: [facility] Pt Unit #: [id number] Report #: [id number] CC: George Melchor NP IMAGING SERVICES REPORT Order # Category/Exam [id number] RAD/XR Chest 1 View Portable ([id number]): . Results PORTABLE CHEST: History: Covid exposure. FINDINGS: Heart size is within normal limits. There isright lower lobe infiltrative lung changes seen. There is a minimal increased density in the left base. IMPRESSION: Right lower lobe infiltrate. POS: [facility] Reported By: Gulshan Han MD Electronically Signed Date/Time: 02/27/20 1435 Technologist: AMC Dictated Date/Time: 02/27/20 1102 Transcribed Date/Time: 02/27/20 1312 Notes Date/Time Note Provider Source Omar Grossman [facility]2024-06-25 00:00:00 Omar Grossman [facility]2024-05-22 00:00:00 Omar Grossman [facility]2020-06-12 02:34:00[facility] Name: [address] : 1960, Age: 59, Sex: [place] [address] Unit #: [id number], Status: DIS IN [phone] Location: [address] [place] [address] Dictated by: Vincenzo Casper MD Admission Date: 02/27/20 Report #: [id number] Discharge Date: 03/02/20 CC: Vincenzo Casper MD LADHA, MALIK MD NO PCP PROVIDER DISCHARGE SUMMARY REPORT DATE OF ADMISSION: 02/27/2020 DATE OF DISCHARGE: 03/02/2020 PRIMARY CARE PROVIDER: Unknown. DISCHARGE DIAGNOSES: 1. Atrial flutter. 2. Status post EP ablation during this hospitalization. 3. Chronic hepatitis B. CONDITION OF PATIENT ON THE DAY OF DISCHARGE: Stable. I assessed Mr. Staples on the day of discharge. He denies any chest pain or shortness of breath. Vital signs are stable. DISCHARGE MEDICATIONS: 1. Carbamazepine 400 mg at bedtime. 2. Depakote 1500 mg at bedtime. 3. Cymbalta 30 mg at bedtime. 4. Gabapentin 900 mg 3 times a day. 5. Omeprazole 20 mg daily. 6. Pravastatin 10 mg at bedtime. 7. Terazosin 2 mg daily. 8. Apixaban 5 mg 2 times a day. 9. Cephalexin 250 mg 3 times a day, 28 more doses. 10. Lopressor 25 mg 2 times a day. 11. P.r.n. meloxicam has been discontinued. CONSULTATIONS DURING THIS HOSPITALIZATION: Electrophysiology, Dr. Tabor. HOSPITAL COURSE: Mr. Staples is a pleasant 59-year-old gentleman, who was admitted to [facility] on February 27, 2020, for symptomatic atrial flutter with rapid ventricular response. He had questionable infiltrate in the right lower lobe, but there was no evidence of pneumonia. COVID-19 was ruled out. He was seen by Electrophysiology Service and underwent ablation. He improved clinically and is being discharged back to [facility] in a stable condition. ACTIVITY: No restrictions. DIET: Heart healthy. DISCHARGE DESTINATION: [place] [employer]. Total amount of time spent coordinating this discharge is 32 minutes. Job ID: [id number] K Dictated by: Vincenzo Casper MD <Electronically signed by Vincenzo Casper MD> 03/26/20 1848 K Dictated Date/Time: 03/02/20 1059 Transcribed Date/Time: 03/03/20 0230 Webmaster: Haleigh CarlinIcscwTTAEYZ6198-17-85 16:30:00[facility] Center Name: ROSEMARY STAPLES [address] : 1960, Age: 59, Sex: [place] [address] Unit #: [id number], Status: DIS IN [phone] Location: [address] [place], [place] [address]P Report Dict Dr.: Juan José Tabor MD Admission Date: 02/27/20 Report #: [id number] Discharge Date: 03/02/20 CC: Electrophysiology Progress Not - Subjective Date: 03/02/20 Time: 08:00 Interval History: s/p EP study and ablation yesterday. He denies any heart racing palpitations, chest pain, syncope, bleeding at the groin sites, or dizziness. He feels well enough to discharge in his mind - Review of Systems Constitutional: denies: chills, fever, malaise, sweats, weakness, other Respiratory: denies: cough, dry, hemoptysis, pleuritic pain, shortness of breath, SOB with excertion , sputum, wheezing, other Cardiology: denies: chest pain, edema, heart racing, light headedness, paroxysmal noc. dyspnea, orthopnea, palpitations, passing out, pleuritic pain, pressure, swelling, other Gastrointestinal: denies: abdominal pain, constipation, diarrhea, hematochezia, melena, nausea, vomitting, other - Objective Allergies/Adverse Reactions: Allergies Allergy/AdvReac Type Severity Reaction Status Date / Time codeine Allergy Severe Anaphylaxis Verified 02/27/20 23:34 Vital Signs Weight: Vital Signs Temp Pulse Resp BP Pulse Ox 03/02/20 08:24 98.2 F 82 18 122/67 95 Weight 248 lb 6 oz I/O: I/O 03/01/20 03/02/20 03/03/20 06:59 06:59 06:59 Intake Total 1340 1280 720 Output Total 450 Balance 1340 830 720 - Quality Measures Condition: Atrial Fibrillation/Flutter (hx or current) (lovenox) CV meds: Eliquis: Yes - Physical Exam General: alert oriented x3, appears well, no apparent distress, speech clear, affect appropriate HEENT: mucus membranes moist, normocephaly Neck: supple neck, midline trachea, no JVD/HJR, no masses, no bruit, no lymphadenopathy, no thromegaly Cardiology: regular rate and rhythm, no murmur, regular rate, regular rhythm, PMI nondisplaced Lungs: clear to auscultation, normal breath sounds, normal exam, no wheeze, rales, rhonchi, no wheezes, no rales, no rhonchi - Labs Result Diagrams: 03/02/20 04:58 03/02/20 04:58 - EKG Interpretation EKG Method: Telemetry EKG shows: Sinus rhythm - Assessment/Plan Assessment/Plan: 1. typical atrial flutter, recurrent - scheduled for EPS and ablation 03/01 at 1300 - hold lovenox and metoprolol in AM - OAC instructions to follow procedure tomorrow 2. Lung infiltrate - initial covid test negative. High risk population as an inmate. 2nd swab ordered to verify negative. 3. CHADS-VASC: 0 he is maintaining sinus rhythm and no recurrence of arrhythmias has been noted. He has been ambulating in his room with no bleeding complications at the groin site. Initiate anticoagulation for 30 days post ablation with Eliquis 5 mg b.i.d.. If no recurrence atrial arrhythmias are seen could consider stopping Eliquis in favor of aspirin alone due to low chads Vasc score. Continue metoprolol. Stable for discharge <Electronically signed by Juan José Tabor MD> 03/07/20 0855 Juan José TaborCtmdrhAALYTG6821-90-84 19:33:00[facility] Name: ROSEMARY STAPLES [facility] [address] : 1960, Age: 59, Sex: [place] [address] Unit #: [id number], Status: DIS IN [phone] [facility] #: [id number] Location: 2SW 231-P Dictated by: Juan José Tabor MD Admission Date: 02/27/20 Report #: [id number] Discharge Date: 03/02/20 CC: LONG HARDY MD NO PCP PROVIDER Juan José Tabor MD OPERATIVE NOTE DATE OF PROCEDURE: 03/01/2020 PROCEDURES PERFORMED: Electrophysiology study and radiofrequency ablation. REASON FOR PROCEDURE: Mr. Staples is a 59-year-old inmate with recurrent hospitalization for rapid atrial flutter, including this admission he is now back in sinus rhythm, but was highly symptomatic prior to that. Difficult rate control with AV zen blocking agents. He is here for EP study and ablation. DESCRIPTION OF PROCEDURE: The patient received deep sedation by Anesthesia specialist. The right femoral venous area was prepped, draped, and anesthetized using subcutaneous lidocaine. Under ultrasound guidance, the right femoral vein was cannulated x2 with a multipurpose needle. Two 8-[place] short sheaths were introduced, through which a ThermoCool SFST catheter and Decapolar pace sense mapping catheter was advanced to the right atrium, His bundle, right ventricle, and CS position. Pacing, mapping, and recording were performed in each location including pacing in left atrium via the CS. Following findings were noted. Baseline rhythm was sinus rhythm at cycle length 762 millisecond, HI 142 millisecond, QRS 46 millisecond, QT 371 millisecond, AH 99 millisecond, HV 46 millisecond, sinus node recovery time measured at 1417 milliseconds corrected to 300 milliseconds. AV Wenckebach cycle length was 480 milliseconds. No VA conduction was seen. AV zen ERP was 600/380 millisecond with no dual AV zen physiology present. Burst atrial pacing induced couple of beats of atrial flutter only. Hence, the typical isthmus dependent appearance of the EKGs during atrial flutter, decision was made to perform cavotricuspid isthmus ablation. During proximal CS pacing, the cavotricuspid isthmus ablation was performed with a total of 20 lesions delivered over 30 minutes and 50 seconds. We were able to prolong the transisthmus time for a baseline 40 milliseconds to 160 milliseconds. Longest transisthmus times were measured by the ablation line suggestive of cavotricuspid isthmus block. Repeated burst atrial pacing did not reinduce arrhythmias. At this point, IV dopamine was started and the rhythm was monitored, no significant PAC burden was seen. Burst atrial pacing did not reinduce arrhythmia on this medication. The transisthmus line was rechecked and remained prolonged. The catheter was removed from the body. Cardiac silhouette did not change throughout the procedure, no complications noted. The femoral venous access sites were closed with Vascade closure under ultrasound guidance. CONCLUSIONS: 1. Successful cavotricuspid isthmus ablation. 2. Normal sinus zen function. 3. Borderline AV zen function and normal His-Purkinje function noted. 4. No evidence of accessory pathway or dual AV zen physiology seen. No VA conduction noted. PLAN: Resume anticoagulation at least a month. Consider stopping afterwards and routine followup. Job ID: [id number] K Dictated by: Juan José Tabor MD <Electronically signed by Juan José Tabor MD> 03/07/20 0855 K Dictated Date/Time: 03/01/20 161 Transcribed Date/Time: 03/01/201929 Webmaster: Juan José [id number] 18:49:00[facility] Center Name: ROSEMARY STAPLES [employer] : 1960, Age: 59, Sex: [place]KE D[place] [id number] Unit #: [id number], Status: DIS [place] [phone] Location: [address] [place] [address] LONG HARDY MD Admission Date: 02/27/20 Report #: [id number] Discharge Date: 03/02/20 CC: Hospitalist Progress Note - Subjective Encounter Date: 03/01/20 Encounter Time: 18:30 Subjective: Patient seen and examined for Aflutter. No CP. s/p ablation. No new complaints. No overnight events - Objective Vital Signs Weight: Vital Signs (12 hours) Temp Pulse Resp BP Pulse Ox 03/01/20 11:48 98.1 F 76 16 127/69 93 L 03/01/20 07:31 98.3 F 74 18 136/74 95 Weight Weight 248 lb 6 oz I O: 02/29/20 03/01/20 03/02/20 06:59 06:59 06:59 Intake Total 1190 1340 Balance 1190 1340 Result Diagrams: 03/01/20 05:04 03/01/20 05:04 EKG Reviewed by me: Yes (Tele SR) Hospitalist ROS - Review of Systems Respiratory: denies: cough, dry, shortness of breath, hemoptysis, SOB with excertion, pleuritic pain , sputum, wheezing, other Cardiovascular: denies: chest pain, palpitations, orthopnea, paroxysmal noc. dyspnea, edema, light headedness, other - Medication Medications: Active Medications Generic Name Dose Route Start Last Admin Trade Name Freq PRN Reason Stop Dose Admin Acetaminophen 650 mg 02/28/20 16:14 03/01/20 17:22 Tylenol PO 650 mg Q6H PRN Administration Mild-Moderate Pain (1-5) Carbamazepine 400 mg 02/27/20 21:00 02/29/20 21:18 Tegretol PO 400 mg HS LUIS Administration Divalproex Sodium 1,500 mg 02/27/20 21:00 02/29/20 21:18 Depakote Er PO 1,500 mg HS LUIS Administration Duloxetine HCl 30 mg 02/27/20 21:00 02/29/20 21:18 Cymbalta PO 30 mg HS LUIS Administration Gabapentin 900 mg 02/27/20 21:00 03/01/20 16:00 Neurontin PO Not Given TID LUIS Ketorolac Tromethamine 30 mg 03/01/20 17:29 03/01/20 17:42 Toradol IVP 03/06/20 17:30 30 mg Q6H PRN Administration Pain Metoprolol Tartrate 25 mg 02/27/20 21:00 02/29/20 21:19 Lopressor PO 25 mg BID LUIS Administration Pantoprazole Sodium 40 mg 02/28/20 09:00 03/01/20 07:31 Protonix PO 40 mg DAILY LUIS Administration Simvastatin 5 mg 02/27/20 21:00 02/29/20 21:19 Zocor PO 5 mg HS LUIS Administration Sodium Chloride 10 ml 02/27/20 15:45 02/28/20 09:13 Flush - Normal Saline IVF 10 ml PRN PRN Administration Saline Flush Terazosin HCl 2 mg 02/28/20 09:00 03/01/20 07:30 Hytrin PO 2 mg DAILY LUIS Administration - Exam General Appearance: NAD Neck: no JVD Heart: RRR, no gallops Respiratory: no wheezes, no ronchi Gastrointestinal: non-tender, non-distended, normal bowel sounds Extremities: no cyanosis, no clubbing Neurological: no new deficit Psychiatric: normal affect, A O x 3 Hosp A/P - Plan DVT proph w/SCDs 1. Atrial flutter with rapid ventricular response converted to sinus rhythm. 2. Chest discomfort along with shortness of breath, palpitations, and lightheadedness secondary to #1. 3. Questionable right lower lobe infiltrate. Pneumonia is ruled out. 4. Bipolar disorder. 5. Hyperlipidemia. 6. History of paroxysmal atrial arrhythmias. 7. Chronic hepatitis B. PLAN: s/p EP ablation resume Metoprolol if ok with Cardiology Cont other meds as above DC in AM if ok with Cardio/EP AM labs <Electronically signed by Long Hardy MD> 03/05/20 1017 LONG [id number] 10:48:00[facility] Name: ROSEMARY STAPLES [place] : 1960, Age: 59, [place]: [place] [address] Unit #: [id number], Status: ADM [place] [phone] Location: [address] [place] [address] Attending Phys: Long Hardy MD Discharge Date: Report #: Consulting Phys: Juan José Tabor MD CC: LONG HARDY MD NO PCP PROVIDER Juan José Tabor MD CONSULTATION REPORT DATE OF CONSULTATION: 02/28/2020 Dictated by Jada Rowley, nurse practitioner, as a scribe for Dr. Juan José Tabor. Consultation performed by Dr. Juan José Tabor. REASON FOR CONSULTATION: Atrial flutter. HISTORY OF PRESENT ILLNESS: Mr. Staples is an inmate with a history of recurrent paroxysmal atrial arrhythmias. He was recently hospitalized at [facility], where he was diagnosed with a tachyarrhythmia, but unfortunately is unable to provide additional detail. He presented to the emergency room with palpitations and lightheadedness, one day in duration. His dizziness was pronounced when standing up. His palpitations and shortness of breath were worse with exertion with some associated chest pressure. The chest discomfort was intermittent, not predictable. It was not provoked with exertion and was not relieved by rest. He denies any cough or sputum production, passing-out episodes, or swelling in the extremities. He is currently feeling fairly well. He is in the COVID rule out floor as his COVID test results have not yet been received. He is found to be in atrial flutter, RVR with ventricular rates in the 150 beats per minute range. He was given 6 mg of adenosine followed by 20 mg of IV Cardizem and then placed on a Cardizem drip. This was performed by EMS. Upon arriving to the emergency room, he was in 2:1 atrial flutter and ventricular rates in the 140 beats per minute range. He did have some hypotension after the Cardizem. He received additional adenosine and currently he in sinus rhythm. REVIEW OF SYSTEMS: A 12-point review of systems is negative expect that listed above in HPI. PAST MEDICAL HISTORY: 1. Paroxysmal atrial arrhythmias. 2. Chronic hepatitis B. 3. Hyperlipidemia. 4. Bipolar disorder. PAST SURGICAL HISTORY: Appendectomy, right femur surgery, right shoulder surgery, and facial surgery. ALLERGIES: CODEINE. HOME MEDICATIONS: 1. Meloxicam 7.5 mg daily. 2. Terazosin 2 mg daily. 3. Cymbalta 30 mg at bedtime. 4. Carbamazepine 400 mg at bedtime. 5. Pravastatin sodium 10 mg at bedtime. 6. Omeprazole 20 mg daily. 7. Gabapentin 900 mg t.i.d. 8. Depakote 1500 mg at bedtime. SOCIAL HISTORY: He is an inmate. Denies current alcohol, tobacco, or illicit drug use. Positive for history of tobacco habituation, but not current. History of cocaine, heroin, cannabis, benzodiazepine, and methamphetamine use in the past. FAMILY HISTORY: Negative for heart disease. OBJECTIVE: VITAL SIGNS: Temperature 96.8, pulse 68, blood pressure 117/61, respirations 18, and oxygen 96% on room air. GENERAL: The patient is alert and oriented. Speech is clear. Affect is appropriate. He is in no apparent distress at the time of exam. HEENT: He is normocephalic and atraumatic. Sclerae are anicteric. EOMs are intact. Oral mucosa is moist and pink with adequate dentition. NECK: Supple without jugular venous distention. There is no lymphadenopathy, and trachea is midline. LUNGS: Clear to auscultation bilaterally without wheezes, crackles, or rhonchi. Respirations are even and unlabored with good bilateral excursion. CARDIOVASCULAR: His heart rate is regularly regular with crisp S1 and S2. PMI is nondisplaced. ABDOMEN: Soft, nontender without palpable masses. EXTREMITIES: Warm and dry to touch. Well perfused without clubbing, cyanosis, or edema. NEUROLOGIC: Grossly intact and nonfocal, and his gait was not assessed. DATABASE: Telemetry and EKGs currently show sinus rhythm. Initial EKG shows atrial flutter, mostly with 2:1 AV zen conduction, rapid at 140 to 150 beats per minute. It appears to be cavotricuspid isthmus dependent in origin. He has since converted to sinus rhythm. LABORATORY DATA: Hematology was unremarkable. Chemistry; potassium 4.3, magnesium 2.2, creatinine 0.8. TSH 0.24. BNP 100. Troponins are negative. Liver enzymes within normal ranges. IMPRESSION: 1. Typical atrial flutter with RVR. 2. CHADS-VASc score of 0, currently on CVA prophylactic dose of Lovenox. 3. Right lower lobe infiltrate. 4. Chronic hepatitis B. PLAN AND RECOMMENDATIONS: Mr. Staples is a 59-year-old gentleman, who is an inmate, who recently was diagnosed with paroxysmal atrial arrhythmias and underwent workup by [facility]. We find that he is once again in atrial flutter with RVR and it does appear to be cavotricuspid isthmus dependent in origin. I discussed potential treatment options for him including antiarrhythmic medication and/or ablation. I detailed the risks, benefits, and alternatives with either option. At this point, he is motivated to move forward with the ablation. I feel this would be reasonable and we will pursue making arrangements possibly for later today as he is n.p.o. Since this has required two hospitalizations in the recent past, I would pursue doing this while he is hospitalized rather than delay for an outpatient procedure. His CHADS-VASc score is low, but he will likely require at least 30 days of anticoagulation post ablation if he is able to tolerate this. So far, no atrial fibrillation has been seen, although he will undergo full electrophysiology study at the time of his ablation procedure. He has been tested for COVID-19, but results are pending. I will have him added to my case load today pending his COVID testing results. The patient voices understanding and is willing to proceed with this procedure, understanding the risks associated. Thank you for allowing me to participate in the care of this patient. Job ID: [id number] K Dictated by: Juan José Tabor MD <Electronically signed by Juan José Tabor MD> 03/01/20 1705 K Dictated Date/Time: 02/28/20 1221 Transcribed Date/Time: 02/28/20 1724 Webmaster: Juan José [id number] 09:47:00[facility] Name: ROSEMARY STAPLES [facility] [address] : 1960, Age: 59, Sex: [place]KE [place] [address] Unit #: [id number], Status: DIS [place] [phone] Location: [address] [place] [address] Dictated by: LONG HARDY MD Admission Date: 02/27/20 Report #: [id number] Discharge Date: 03/02/20 CC: LONG HARDY MD NO PCP PROVIDER DISCHARGE SUMMARY REPORT DATE OF ADMISSION: 02/27/2020 DATE OF DISCHARGE: 02/29/2020 DISCHARGE DISPOSITION: [facility] if accepted. ALLERGIES: THE PATIENT IS ALLERGIC TO CODEINE. DISCHARGE MEDICATIONS: Metoprolol 25 mg b.i.d. All other home medications were left unchanged. The patient was seen and examined on the day of discharge. Denies any new complaints. No fever, chills, cough, shortness of breath, or wheezing reported. PHYSICAL EXAMINATION: VITAL SIGNS: Showed temperature 98, pulse of 65, respirations of 18, blood pressure of 116/67 with O2 saturation of 95% on room air. GENERAL: A 59-year-old male, in no apparent distress. LUNGS: Clear to auscultation bilaterally. HEART: S1 and S2 present. Regular rate and rhythm. No rubs or gallops. ABDOMEN: Soft, nontender. Bowel sounds are present. EXTREMITIES: No edema or calf tenderness. SIGNIFICANT LABORATORY DATA: Procalcitonin was 0.02. Troponins were negative. Electrolytes in normal range. COVID-19 testing was negative. Repeat COVID-19 testing is pending at the time of this dictation. IMAGING STUDIES: Chest x-ray showed questionable right lower lobe infiltrate. BRIEF HOSPITAL COURSE: The patient is a 59-year-old male with paroxysmal atrial arrhythmias with recent hospitalization at [facility], presented with palpitations with lightheadedness of 1-day duration. His workup was consistent with atrial flutter with rapid ventricular response with heart rate in 150s. He received 20 mg IV Cardizem with 6 mg of adenosine. He was later placed on Cardizem drip. However, after Cardizem drip, his blood pressure dropped. He was then started on amiodarone. The patient spontaneously converted to sinus rhythm later during the hospitalization. He is currently on metoprolol 25 mg b.i.d. The patient was evaluated by Electrophysiology. Electrophysiology recommended electrophysiology study with ablation, which is scheduled for tomorrow. COVID-19 testing x1 was negative. Repeat testing is pending at the time of this dictation. The patient was found to have a questionable right lower lobe infiltrate. However, he has been totally asymptomatic and does not have any symptoms consistent with pneumonia. He was placed on ceftriaxone with doxycycline, which was discontinued. His procalcitonin level was 0.02. The patient is currently in sinus rhythm. FINAL DIAGNOSES: 1. Atrial flutter with rapid ventricular response converted to sinus rhythm. 2. Chest discomfort along with shortness of breath, palpitations, and lightheadedness secondary to #1. 3. Questionable right lower lobe infiltrate. Pneumonia is ruled out. 4. Bipolar disorder. 5. Hyperlipidemia. 6. History of paroxysmal atrial arrhythmias. 7. Chronic hepatitis B. The patient understands the plan of care. Time coordinating the discharge of this patient was 36 minutes. Job ID: [id number] K Dictated by: LONG HARDY MD <Electronically signed by LONG HARDY MD> 03/05/20 1017 K Dictated Date/Time: 02/29/20 0926 Transcribed Date/Time: 02/29/2044 Webmaster: LONG [id number] 07:57:00[facility] Name: ROSEMARY STAPLES [address] : 1960, Age: 59, Sex: [place]KE [place] [address] Unit #: [id number], Status: ADM [place] [phone] Location: [address] [place] [address] Juan José Tabor MD Admission Date: 02/27/20 Report #: [id number] Discharge Date: CC: Electrophysiology Progress Not - Subjective Date: 02/29/20 Time: 07:55 Interval History: Follow up for recurrent atrial flutter management. Patient feels well and voices no complaints. - Review of Systems Constitutional: denies: chills, fever, sweats, weakness Respiratory: reports: cough. denies: shortness of breath, sputum, wheezing Cardiology: denies: chest pain, edema, heart racing, light headedness, passing out Gastrointestinal: denies: abdominal pain, constipation, nausea - Objective Allergies/Adverse Reactions: Allergies Allergy/AdvReac Type Severity Reaction Status Date / Time codeine Allergy Severe Anaphylaxis Verified 02/27/20 23:34 Current Medications Acetaminophen (Tylenol) 650 mg PO Q6H PRN PRN Reason: Mild-Moderate Pain (1-5) Last Admin: 02/28/20 17:48 Dose: 650 mg Carbamazepine (Tegretol) 400 mg PO [facility] Last Admin: 02/28/20 20:32 Dose: 400 mg Diltiazem HCl (Cardizem) 30 mg PO Q6H PRN PRN Reason: HR >120 sustained Divalproex Sodium (Depakote Er) 1,500 mg PO [facility] Last Admin: 02/28/20 20:32 Dose: 1,500 mg Doxycycline Hyclate (Vibramycin) 100 mg PO BID [facility] Last Admin: 02/28/20 20:32 Dose: 100 mg Duloxetine HCl (Cymbalta) 30 mg PO [facility] Last Admin: 02/28/20 20:32 Dose: 30 mg Enoxaparin Sodium (Lovenox) 110 mg SC 0900,2100 [facility] Stop: 02/29/20 21:01 Last Admin: 02/28/20 20:30 Dose: 110 mg Gabapentin (Neurontin) 900 mg PO TID [facility] Last Admin: 02/28/20 20:31 Dose: 900 mg Ceftriaxone Sodium 2 gm/ (Sodium Chloride) 100 mls @ 200 mls/hr IVPB 1700 [facility] Last Admin: 02/28/20 17:48 Dose: 100 mls Metoprolol Tartrate (Lopressor) 25 mg PO BID [facility] Last Admin: 02/28/20 20:32 Dose: 25 mg Nitroglycerin (Nitrostat) 0.4 mg PO Q5MIN PRN PRN Reason: Chest Pain Pantoprazole Sodium (Protonix) 40 mg PO DAILY [facility] Last Admin: 02/28/20 09:13 Dose: 40 mg Simvastatin (Zocor) 5 mg PO HS [facility] Last Admin: 02/28/20 20:32 Dose: 5 mg Sodium Chloride (Flush - Normal Saline) 10 ml IVF PRN PRN PRN Reason: Saline Flush Last Admin: 02/28/20 09:13 Dose: 10 ml Terazosin HCl (Hytrin) 2 mg PO DAILY [facility] Last Admin: 02/28/20 09:13 Dose: 2 mg Vital Signs Weight: Vital Signs Temp Pulse Resp BP Pulse Ox 02/29/20 03:20 98 F 65 18 116/67 95 02/28/20 20:40 98 F 64 18 115/76 98 Weight 253 lb 3 oz I/O: I/O 02/28/20 02/29/20 03/01/20 06:59 06:59 06:59 Intake Total 1350 1190 Balance 1350 1190 - Quality Measures Condition: Atrial Fibrillation/Flutter (hx or current) (lovenox) - Physical Exam General: alert oriented x3, appears well, no apparent distress, speech clear, affect appropriate HEENT: mucus membranes moist, normocephaly Neck: supple neck, midline trachea, no JVD/HJR, no lymphadenopathy Cardiology: regular rate and rhythm, no murmur, PMI nondisplaced Lungs: clear to auscultation, normal breath sounds, no wheeze, rales, rhonchi Neurology: cranial nerve 2-12 intact, grossly intact, no lateralizing findings Abdomen: unremarkable, no masses, no hepatosplenomegaly, HJR negative Extremities: dry, strong pulses, warm - Labs Result Diagrams: 02/27/20 10:50 02/27/20 10:50 - EKG Interpretation EKG Method: Telemetry EKG shows: Sinus rhythm - Assessment/Plan Assessment/Plan: 1. typical atrial flutter, recurrent - scheduled for EPS and ablation 03/01 at 1300 - hold lovenox and metoprolol in AM - OAC instructions to follow procedure tomorrow 2. Lung infiltrate - initial covid test negative. High risk population as an inmate. 2nd swab ordered to verify negative. 3. CHADS-VASC: 0 NPO after MN. Consent obtained. <Electronically signed by Juan José Tabor MD> 03/01/20 170Juan José [id number] 16:23:00[facility] Center Name: ROSEMARY STAPLES [address] : 1960, Age: 59, Sex: [place]KE [place] [address] Unit #: [id number], Status: ADM [place] [phone] Location: [facility] [id number] Report Dict Dr.: Taiwo Blackburn MD Admission Date: 02/27/20 Report #: [id number] Discharge Date: CC: Hospitalist Progress Note - Subjective Encounter Date: 02/28/20 Encounter Time: 09:00 Subjective: no overnight events. This morning, feeling well and has no complaints. - Objective Vital Signs Weight: Vital Signs (12 hours) Temp Pulse Resp BP Pulse Ox 02/28/20 15:35 98.1 F 61 20 127/64 97 02/28/20 12:55 96.9 F L 65 18 110/68 97 02/28/20 09:15 96.8 F L 68 18 117/61 96 02/28/20 04:36 98.5 F 69 18 119/69 96 Weight Weight 253 lb 8 oz I O: 02/27/20 02/28/20 02/29/20 06:59 06:59 06:59 Intake Total 1350 Balance 1350 Result Diagrams: 02/27/20 10:50 02/27/20 10:50 Hospitalist ROS - Review of Systems Constitutional: denies: fever, chills, sweats, weakness, malaise, other Respiratory: denies: cough, shortness of breath, SOB with excertion, pleuritic pain, sputum Cardiovascular: denies: chest pain, palpitations, orthopnea, paroxysmal noc. dyspnea Gastrointestinal: denies: nausea, vomiting, abdominal pain - Medication Medications: Active Medications Generic Name Dose Route Start Last Admin Trade Name Freq PRN Reason Stop Dose Admin Carbamazepine 400 mg 02/27/20 21:00 02/27/20 21:21 Tegretol PO 400 mg HS LUIS Administration Divalproex Sodium 1,500 mg 02/27/20 21:00 02/27/20 21:22 Depakote Er PO 1,500 mg HS LUIS Administration Doxycycline Hyclate 100 mg 02/27/20 21:00 02/28/20 09:13 Vibramycin PO 100 mg BID LUIS Administration Duloxetine HCl 30 mg 02/27/20 21:00 02/27/20 21:20 Cymbalta PO 30 mg HS LUIS Administration Enoxaparin Sodium 110 mg 02/27/20 21:00 02/28/20 09:10 Lovenox SC 110 mg 0900,2100 LUIS Administration Gabapentin 900 mg 02/27/20 21:00 02/28/20 15:36 Neurontin PO 900 mg TID LUIS Administration Ceftriaxone Sodium 2 gm/ 100 mls @ 200 mls/hr 02/27/20 17:00 02/27/20 21:25 Sodium Chloride IVPB Not Given 1700 LUIS Metoprolol Tartrate 25 mg 02/27/20 21:00 02/28/20 09:13 Lopressor PO 25 mg BID LUIS Administration Pantoprazole Sodium 40 mg 02/28/20 09:00 02/28/20 09:13 Protonix PO 40 mg DAILY LUIS Administration Simvastatin 5 mg 02/27/20 21:00 02/27/20 21:21 Zocor PO 5 mg HS LUIS Administration Sodium Chloride 10 ml 02/27/20 15:45 02/28/20 09:13 Flush - Normal Saline IVF 10 ml PRN PRN Administration Saline Flush Terazosin HCl 2 mg 02/28/20 09:00 02/28/20 09:13 Hytrin PO 2 mg DAILY LUIS Administration - Exam General Appearance: NAD, awake alert Heart: RRR, no murmur, no gallops Respiratory: CTAB, no wheezes, no rales, no ronchi Gastrointestinal: soft, non-tender, non-distended, normal bowel sounds Extremities: no edema Psychiatric: normal affect, normal behavior, A O x 3 Hosp A/P - Plan #paroxysmal afib/aflut -currently sinus -pending EP evaluation, possibly ablation #CAP -covid -ve x 1 -x-ray evidence of infiltrates but not symptoms consistent with pneumonia -procalcitonin; if <0.1 can stop ABx <Electronically signed by Taiwo Blackburn MD> 02/28/20 1634 Bere [id number] 16:05:00[facility] Name: [address] : 1960, Age: 59, Sex: [place]KE [place] [address] Unit #: [id number], Status: DIS [place] [phone] Location: [address] [place] [address] Dictated by: LONG HARDY MD Admission Date: 02/27/20 Report #: [id number] Discharge Date: 03/02/20 CC: LONG HARDY MD NO PCP PROVIDER HISTORY AND PHYSICAL REPORT PRIMARY CARE: The patient is an inmate. CHIEF COMPLAINT: Palpitations with lightheadedness of one-day duration. HISTORY OF PRESENT ILLNESS: The patient is a 59-year-old male with paroxysmal atrial fibrillation presented to the emergency room with above complaints. The patient was recently discharged from [facility]. He was diagnosed with tachyarrhythmia. He is unable to provide further details. He states that echocardiogram was done. He denies any cardiac catheterization or cardioversion. Over the last 2 to 3 days, the patient has episodes of dizziness especially when he stands up. He also noticed palpitations along with shortness of breath, especially on exertion and chest pressure. The chest discomfort is intermittent without any aggravating or relieving factor. He denies any cough or wheezing. No syncope reported. He was found to have heart rate in 150s by EMS. He received 6 mg of adenosine followed by 20 mg IV Cardizem. He was placed on Cardizem drip and was brought into the emergency room. In the emergency room, he was found to have atrial flutter with 2:1 AV block with heart rate in 140s. He dropped his blood pressure after Cardizem. After discussion with Cardiology, he received Amiodarone. PAST MEDICAL HISTORY: 1. Paroxysmal atrial arrhythmias with recent hospitalization at [facility]. 2. Chronic hepatitis B. 3. Hyperlipidemia. 4. Bipolar disorder. PAST SURGICAL HISTORY: 1. Appendectomy. 2. Right femur surgery. 3. Right shoulder surgery. 4. Facial surgery. ALLERGIES: THE PATIENT IS ALLERGIC TO CODEINE. CURRENT HOME MEDICATION: At the unit 1. Carbamazepine 400 mg q.p.m. 2. Depakote 1500 mg q.p.m. 3. Cymbalta 30 mg q.p.m. 4. Gabapentin 900 mg 3 times a day. 5. Omeprazole 20 mg daily. 6. Lovastatin 10 mg q.p.m. 7. Terazosin 2 mg daily. SOCIAL HISTORY: The patient is an inmate. Denies current use of smoking or drug use. He is a former smoker. He also abused cocaine, heroin, cannabis, benzodiazepine and methamphetamine opiates in the past. FAMILY HISTORY: Negative for heart disease. REVIEW OF SYSTEMS: All other review of systems are reviewed and were found negative. PHYSICAL EXAMINATION: VITAL SIGNS: On ER arrival, temperature 98.2 with respirations of 18, heart rate in 140s, blood pressure of 95/70, O2 saturation 97% on room air. GENERAL: A 59-year-old male in no apparent distress HEENT: Head, atraumatic and normocephalic. Sclerae anicteric. Moist mucous membranes. No oral lesion. NECK: Supple. No JVD appreciated. No carotid bruit. LUNGS: Clear to auscultation bilaterally with some rales at right base. No accessory muscle use. HEART: S1, S2 present. Tachycardic. No rubs or gallops. ABDOMEN: Soft, nontender. Bowel sounds present. EXTREMITIES: No edema or calf tenderness. NEUROLOGY: Grossly nonfocal moves all 4 extremities. PSYCHIATRY: Alert, awake, oriented x3. SKIN: Warm and dry. LYMPH NODES: No palpable lymph nodes in the neck. PERIPHERAL VASCULAR: Radial pulses palpable bilaterally. MUSCULOSKELETAL: No joint swelling or tenderness. LABORATORY DATA: Findings CBC showed WBC 3.9 with hemoglobin 14.3, hematocrit 41.2, platelet of 136. Chemistry showed sodium 138, potassium 4.3, chloride 107, bicarb 22, BUN 14, and creatinine 0.8. LFTs in normal range. Troponin was negative. BNP was 100. EKG by my review showed atrial flutter with 2:1 AV block. Chest x-ray by my review showed right-sided infiltrate. IMPRESSION: 1. Atrial flutter with rapid ventricular response. 2. Chest discomfort, shortness of breath, lightheadedness secondary to #1. 3. Right lower lobe infiltrate. Rule out COVID-19. 4. Bipolar disorder. 5. Hyperlipidemia. 6. History of paroxysmal atrial arrhythmia. 7. Chronic hepatitis B. 8. Recent workup by [facility] .. PLAN: The patient will be monitored on the telemetry unit. We will complete amiodarone as recommended by Cardiology. Cardiology will be consulted. We will add digoxin if heart rate is uncontrolled. We will recheck labs in a.m. Keep n.p.o. past midnight. We will check TSH as well. Job ID: [id number] K Dictated by: LONG HARDY MD <Electronically signed by LONG HARDY MD> 03/05/20 1017 K Dictated Date/Time: 02/27/20 1539 Transcribed Date/Time: 02/27/20 1601 Webmaster: ERICKSON PATTERSON
[2024-07-19 17:05] LABS: Absolute Basophils 0.1 K/uL (0-0.5); Absolute Eosinophils 0.3 K/uL (0-0.5); Absolute Lymphocytes (CBC) 1.7 K/uL (0.7-4.9); Absolute Monocytes 0.7 K/uL (0.1-1.3); Absolute Neutrophil 4.4 K/uL (1.8-8.0); Eosinophils % 4.3 % (0-4.4); Hematocrit 41.7 % (39.6-49.0); Hemoglobin 13.5 g/dL (13.6-17.9); Lymphocytes % 23.8 % (15.3-44.8); MCH 28.6 pg (27.0-35.0); MCHC 32.3 g/dL (32.0-36.0); MCV 88.7 fL (80-100); MPV 7.9 fL (7.6-11.3); Monocytes % 10.2 % (3.3-12.3); Neutrophils % 60.7 % (41.7-73.7); Platelets 221 thou/uL (152-406)
[2024-07-19 17:10] LABS: PT Prothrombin Time 11.7 SECONDS (9.4-12.5); Protime INR 1.05
--- NOTE | 2024-07-19 17:34 | RAD REPORT ---
Procedure: Chest Single View HISTORY: Chest pain COMPARISON: none FINDINGS: The lungs appear clear of acute infiltrate. Upper lobe vessels are prominent indicating pulmonary vascular congestion. No significant pleural effusion noted. The heart is mildly enlarged.
[2024-07-19] MEDS ORDERED: ENOXAPARIN 100 MG/ML SYR SQ ONE (18:50)
[2024-07-19 19:24] LABS: ALT/SGPT 30 U/L (16-61); AST/SGOT 15 U/L (15-37); Albumin 3.2 g/dL (3.4-5.0); Albumin/Globulin Ratio 0.9 (1.1-1.8); Alkaline Phosphatase 103 U/L (45-117); Anion Gap 7.9 mEq/L (5.0-15.0); BUN Blood Urea Nitrogen 20 mg/dL (7-18); Bicarbonate 25 mEq/L (21-32); Bilirubin Direct < 0.2 mg/dL (0-0.2); Bilirubin Total 0.2 mg/dL (0.2-1.0); Globulin 3.6 g/dL (2.3-3.5); Glomerular Filtration Rate 74 ml/min (=/>90); Glucose Level 114 mg/dL (74-106); Magnesium 2.3 mg/dL (1.6-2.4); NT PRO-BNP 639 pg/mL (<125); Potassium 3.9 mEq/L (3.5-5.1); Protein, Total 6.8 g/dL (6.4-8.2); Sodium Level 138 mEq/L (136-145); Troponin High Sensitivity 21.6 pg/mL (<58.9)
--- NOTE | 2024-07-19 19:31 | ER ---
Nurse's Notes [facility] Name: Tyler Staples Age: 64 yrs Sex: Male : 1960 Arrival Date: 07/19/2024 Time: 15:29 Bed 13 Private MD: Diagnosis: Chest pain, atrial fibrillation Presentation: 07/19 15:54 Chief complaint: Patient states: Intermittent chest pain for a few months, worse today ph so called EMS, [facility]. Coronavirus screen: Vaccine status: Patient reports receiving the 2nd dose of the covid vaccine. Ebola Screen: No symptoms or risks identified at this time. Initial Sepsis Screen: Does the patient meet any 2 criteria? No. Patient's initial sepsis screen is negative. Does the patient have a suspected source of infection? No. Patient's initial sepsis screen is negative. Risk Assessment: Do you want to hurt yourself or someone else? Patient reports no desire to harm self or others. Onset of symptoms was July 19, 2024. 15:54 Method Of Arrival: EMS: [facility] 15:54 Acuity: ANDREZ 2 ph Triage Assessment: 15:58 General: Appears in no apparent distress. uncomfortable, Behavior is calm, cooperative. ph Pain: Complains of pain in anterior aspect of left upper chest Pain does not radiate. Quality of pain is described as squeezing. Neuro: Level of Consciousness is awake, alert, obeys commands, Oriented to person, place, time, situation. Cardiovascular: Reports chest pain, Capillary refill < 3 seconds in bilateral fingers Patient's skin is warm and dry. Respiratory: Airway is patent Respiratory effort is even, unlabored. Derm: Skin is pink, warm \T\ dry. Musculoskeletal: Circulation, motion, and sensation intact. Range of motion: intact in all extremities. Historical: - Allergies: 15:56 Codeine; ph - Immunization history:: Adult Immunizations unknown. - Infectious Disease History:: Denies. - Social history:: Smoking status: Patient reports the use of cigarette tobacco products, smokes one-half pack cigarettes per day. Screenin:09 [facility] ED Fall Risk Assessment (Adult) History of falling in the last 3 months, ph including since admission No falls in past 3 months (0 pts) Confusion or Disorientation No (0 pts) Intoxicated or Sedated No (0 pts) Impaired Gait No (0 pts) Mobility Assist Device Used No (0 pt) Altered Elimination No (0 pt) Score/Fall Risk Level 0 - 2 = Low Risk Oriented to surroundings, Maintained a safe environment, Provided non-skid footwear, Hourly rounding (assess needs \T\ fall precautionary measures) done. Abuse screen: Denies threats or abuse. Denies injuries from another. Nutritional screening: No deficits noted. Tuberculosis screening: No symptoms or risk factors identified. Assessment: 17:00 General: SEE TRIAGE ASSESSMENT. ph 18:00 Reassessment: Patient appears in no apparent distress at this time. Patient and/or ph family updated on plan of care and expected duration. Pain level reassessed. Patient is alert, oriented x 3, equal unlabored respirations, skin warm/dry/pink. 19:05 General: Appears in no apparent distress. comfortable, Behavior is calm, cooperative, rg5 appropriate for age. 19:05 Pain: Denies pain. Neuro: Level of Consciousness is awake, alert, obeys commands. rg5 Cardiovascular: Reports chest pain. Respiratory: Airway is patent Trachea midline Respiratory effort is even, unlabored, Respiratory pattern is regular, symmetrical. GI: Abdomen is round non-distended, Abd is soft and non tender. : No signs and/or symptoms were reported regarding the genitourinary system. EENT: No deficits noted. Derm: Skin is intact, Skin is dry, Skin is normal, Skin temperature is warm. Musculoskeletal: Circulation, motion, and sensation intact. Range of motion: intact in all extremities. 20:00 Reassessment: Patient and/or family updated on plan of care and expected duration. Pain rg5 level reassessed. Patient is alert, oriented x 3, equal unlabored respirations, skin warm/dry/pink. 21:30 Reassessment: Patient and/or family updated on plan of care and expected duration. Pain rg5 level reassessed. Patient is alert, oriented x 3, equal unlabored respirations, skin warm/dry/pink. 22:16 Reassessment: Patient and/or family updated on plan of care and expected duration. Pain rg5 level reassessed. Patient is alert, oriented x 3, equal unlabored respirations, skin warm/dry/pink. Vital Signs: 15:54 BP 127 / 85; Pulse 98; Resp 18; Temp 98; Pulse Ox 100% on R/A; Weight 106.59 kg; Height ph 6 ft. 1 in. ; 17:00 BP 118 / 83; Pulse 64; Resp 18; Pulse Ox 98% on R/A; ph 18:00 BP 124 / 87; Pulse 91; Resp 18; Pulse Ox 98% on R/A; ph 19:11 BP 135 / 99; Pulse 110; Resp 18; Pulse Ox 98% on R/A; ph 19:20 BP 135 / 99; Pulse 102; Resp 17; Pulse Ox 98% on R/A; rg5 20:30 BP 129 / 89; Pulse 85; Resp 18; Temp 98(O); Pulse Ox 100% on R/A; Pain 0/10; rg5 21:25 BP 128 / 88; Pulse 90; Resp 18; Pulse Ox 100% on R/A; rg5 15:54 Body Mass Index 31.00 (106.59 kg, 185.42 cm) ph 20:30 Pain Scale: Adult rg5 Vitals: 19:11 Cardiac Rhythm Assessment Atrial fibrillation. ph ED Course: 15:32 Patient arrived in ED. bd 15:37 Chaparro Torres MD is Attending Physician. sp3 15:45 Katerine Valles, RN is Primary Nurse. ph 15:56 Triage completed. ph 15:56 Arm band placed on Patient placed in an exam room, on a stretcher, on hospital monitor, ph on pulse oximetry. 16:30 Initial lab(s) drawn, by me, sent to lab. EKG done, by ED staff, reviewed by Chaparro Torres MD. Maintain EMS IV. Dressing intact. Good blood return noted. Site clean \T\ dry. Gauge \T\ site: 18 LAC. Flushed with 10 mL NS. 17:17 XRAY Chest (1 view) In Process Unspecified. EDMS 19:09 Patient has correct armband on for positive identification. Bed in low position. Call ph light in reach. Side rails up X 1. Client placed on continuous cardiac and pulse oximetry monitoring. NIBP monitoring applied. school lunch monitor on. Door closed. Noise minimized. Lights dimmed. Warm blanket given. 19:10 Patient maintains SpO2 saturation greater than 95% on room air. ph 19:11 No provider procedures requiring assistance completed. Patient admitted, IV remains in ph place. 19:30 Phan Cardoza MD is Hospitalizing Provider. sp3 21:37 Provided Education on: needs for admit. rg5 Administered Medications: 19:08 Drug: Enoxaparin Sub-Q 100 mg Sub-Q once Route: Sub-Q; Site: right lower abdomen; ph 19:30 Follow up: Response: No adverse reaction rg5 Medication: 19:09 VIS not applicable for this client. ph Outcome: 19:31 Decision to Hospitalize by Provider. sp3 21:37 Admitted to Med/surg accompanied by nurse, via wheelchair, rg5 21:37 Condition: stable 21:37 Instructed on the need for admit, 22:21 Patient left the ED. rg5 Signatures: Dispatcher [employer] EDMS Daisy Richards Patricia, RN RN Chaparro Torres MD MD sp3 Everett Perez RN RN rg5 Corrections: (The following items were deleted from the chart) 22:17 21:38 Pain: Pain began rg5 rg5
--- NOTE | 2024-07-19 19:31 | EDPHYS ---
Physician Documentation [facility] Name: Tyler Staples Age: 64 yrs Sex: Male : 1960 Arrival Date: 07/19/2024 Time: 15:29 Bed 13 Private MD: ED Physician Chaparro Torres HPI: 07/19 17:40 This 64 yrs old Male presents to ER via EMS with complaints of Chest Pain. sp3 17:40 64-year-old male with a history of seizure disorder, prior atrial fibrillation formally sp3 on Coumadin now on no anticoagulants, and new PCP and no current marketing communications leader presents to the ED with chest pain. Chest pain started early this morning and patient states he has had these types of pains off and on for the last month. He states he is "getting his medical stuff back in order". He denies being on any anticoagulants or antiplatelet agents currently. He has a bag of medicines which did not have any of these types of medications. He is on Tegretol as well. He denies any headache, neck pain, shortness of breath, abdominal pain, back pain, nausea, vomiting, diarrhea, or any other signs or symptoms on ROS at this time.. Historical: - Allergies: 15:56 Codeine; ph - Immunization history:: Adult Immunizations unknown. - Infectious Disease History:: Denies. - Social history:: Smoking status: Patient reports the use of cigarette tobacco products, smokes one-half pack cigarettes per day. ROS: 17:42 Constitutional: Negative for fever, chills, and weight loss, Eyes: Negative for injury, sp3 pain, redness, and discharge, ENT: Negative for injury, pain, and discharge, Neck: Negative for injury, pain, and swelling, Respiratory: Negative for shortness of breath, cough, wheezing, and pleuritic chest pain, Abdomen/GI: Negative for abdominal pain, nausea, vomiting, diarrhea, and constipation, Back: Negative for injury and pain, MS/Extremity: Negative for injury and deformity, Skin: Negative for injury, rash, and discoloration, Neuro: Negative for headache, weakness, numbness, tingling, and seizure, Psych: Negative for depression, anxiety, suicide ideation, homicidal ideation, and hallucinations, Allergy/Immunology: Negative for hives, rash, and allergies, Endocrine: Negative for neck swelling, polydipsia, polyuria, polyphagia, and marked weight changes, Hematologic/Lymphatic: Negative for swollen nodes, abnormal bleeding, and unusual bruising, 17:42 All other systems are negative, Exam: 17:42 Constitutional: This is a well developed, well nourished patient who is awake, alert, sp3 and in no acute distress. Head/Face: Normocephalic, atraumatic. Eyes: Pupils equal round and reactive to light, extra-ocular motions intact. Lids and lashes normal. Conjunctiva and sclera are non-icteric and not injected. Cornea within normal limits. Periorbital areas with no swelling, redness, or edema. ENT: Nares patent. No nasal discharge, no septal abnormalities noted. External auditory canals are clear. Oropharynx with no redness, swelling, or masses, exudates, or evidence of obstruction, uvula midline. Mucous membranes moist. Neck: Trachea midline, no thyromegaly or masses palpated, and no cervical lymphadenopathy. Supple, full range of motion without nuchal rigidity, or vertebral point tenderness. No Meningismus. Chest/axilla: Normal chest wall appearance and motion. Nontender with no deformity. No lesions are appreciated. Respiratory: Lungs have equal breath sounds bilaterally, clear to auscultation and percussion. No rales, rhonchi or wheezes noted. No increased work of breathing, no retractions or nasal flaring. Abdomen/GI: Soft, non-tender, with normal bowel sounds. No distension or tympany. No guarding or rebound. No evidence of tenderness throughout. Back: No spinal tenderness. No costovertebral tenderness. Full range of motion. Skin: Warm, dry with normal turgor. Normal color with no rashes, no lesions, and no evidence of cellulitis. MS/ Extremity: Pulses equal, no cyanosis. Neurovascular intact. Full, normal range of motion. Neuro: Awake and alert, GCS 15, oriented to person, place, time, and situation. Cranial nerves II-XII grossly intact. Motor strength 5/5 in all extremities. Sensory grossly intact. Cerebellar exam normal. Normal gait. Psych: Awake, alert, with orientation to person, place and time. Behavior, mood, and affect are within normal limits. 17:42 Cardiovascular: Irregularly irregular rhythm at 100 bpm, 17:42 ECG was reviewed by the Attending Physician. EKG demonstrates atrial fibrillation with ventricular response at 100 bpm with absent AK interval otherwise normal intervals except for QTc at 472 ms. Incomplete right bundle branch block noted as well. Nonspecific diffuse ST/T changes without evidence of acute ischemia. Vital Signs: 15:54 BP 127 / 85; Pulse 98; Resp 18; Temp 98; Pulse Ox 100% on R/A; Weight 106.59 kg; Height ph 6 ft. 1 in. ; 17:00 BP 118 / 83; Pulse 64; Resp 18; Pulse Ox 98% on R/A; ph 18:00 BP 124 / 87; Pulse 91; Resp 18; Pulse Ox 98% on R/A; ph 19:11 BP 135 / 99; Pulse 110; Resp 18; Pulse Ox 98% on R/A; ph 19:20 BP 135 / 99; Pulse 102; Resp 17; Pulse Ox 98% on R/A; rg5 20:30 BP 129 / 89; Pulse 85; Resp 18; Temp 98(O); Pulse Ox 100% on R/A; Pain 0/10; rg5 21:25 BP 128 / 88; Pulse 90; Resp 18; Pulse Ox 100% on R/A; rg5 15:54 Body Mass Index 31.00 (106.59 kg, 185.42 cm) ph 20:30 Pain Scale: Adult rg5 MDM: 15:50 Medical Screening Exam initiated sp3 17:43 Data reviewed: vital signs, nurses notes, lab test result(s), EKG, radiologic studies. sp3 ED course: 64-year-old male with PMH above including atrial fibrillation not currently anticoagulated now presents with recurrent chest pain. He does not have a current marketing communications leader. Differential diagnosis includes acute coronary syndrome, GI pathology, pulmonary pathology, among others. We will anticoagulate with Lovenox 100 mg. Tegretol level added and is pending. Initial troponin also pending. Will admit patient with cardiology consultation and further escalate if indicated. Patient currently pain-free with spontaneous relief.. 07/19 16:09 Order name: Basic Metabolic Panel; Complete Time: 19:27 sp3 07/19 16:09 Order name: CBC with Diff; Complete Time: 17:16 sp3 07/19 16:09 Order name: LFT's; Complete Time: 19: sp3 07/19 16:09 Order name: Magnesium; Complete Time: 19:27 sp3 07/19 16:09 Order name: NT PRO-BNP; Complete Time: 19:27 sp3 07/19 16:09 Order name: PT-INR; Complete Time: 17:16 sp3 07/19 16:09 Order name: Troponin HS; Complete Time: 19:27 3 07/19 17:35 Order name: Tegretol Level; Complete Time: 19:27 3 07/19 20:39 Order name: Basic Metabolic Panel EDMS 07/19 20:39 Order name: Creatine Phosphokinase EDMS 07/19 20:39 Order name: Magnesium EDMS 07/19 20:39 Order name: NT PRO-BNP EDMS 07/19 20:39 Order name: Phosphorus EDMS 07/19 20:39 Order name: Protime (+INR) EDMS 07/19 20:39 Order name: PTT, Activated Partial Thromb EDMS 07/19 20:39 Order name: Thyroid Stimulating Hormone EDMS 07/19 20:39 Order name: Troponin High Sensitivity EDMS 07/19 20:39 Order name: Urinalysis w/ reflexes EDMS 07/19 20:39 Order name: Lipid Profile EDMS 07/19 20:39 Order name: Lipid Profile EDMS 07/19 16:09 Order name: XRAY Chest (1 view); Complete Time: 17:35 3 07/19 20:40 Order name: LAWRENCE Transesoph. Echo EDMS 07/19 16:09 Order name: EKG; Complete Time: 16:09 3 07/19 20:39 Order name: CONS Physician Consult EDSD 07/19 16:09 Order name: Cardiac monitoring; Complete Time: 19:08 3 07/19 16:09 Order name: EKG - Nurse/Tech; Complete Time: 19:08 3 07/19 16:09 Order name: IV Saline Lock; Complete Time: 19:08 3 07/19 16:09 Order name: Labs collected and sent; Complete Time: 19:08 07/19 16:09 Order name: O2 Per Protocol; Complete Time: 19:08 07/19 16:09 Order name: O2 Sat Monitoring; Complete Time: 19:08 3 07/19 17:05 Order name: Labs - recollect needed: recollect green top; Complete Time: 19:19 bd Administered Medications: 19:08 Drug: Enoxaparin Sub-Q 100 mg Sub-Q once Route: Sub-Q; Site: right lower abdomen; ph 19:30 Follow up: Response: No adverse reaction rg5 Disposition Summary: 07/19/24 19:31 Hospitalization Ordered Notes: Hospitalization Status: Observation sp3 Provider: Phan Cardoza sp3 Location: Telemetry/MedSur (observation) sp3 Condition: Stable sp3 Problem: an acute exacerbation sp3 Symptoms: have worsened sp3 Bed/Room Type: Standard sp3 Room Assignment: 230(07/19/24 20:49) cg Diagnosis - Chest pain, atrial fibrillation sp3 Forms: - Medication Reconciliation Form sp3 - SBAR form sp3 - Leadership Thank You Letter sp3 Signatures: Dispatcher [employer] Daisy Hernandez Patricia, RN RN ph Sherry Patel RN RN Chaparro Torres MD MD sp3 Everett Perez RN rg5 Corrections: (The following items were deleted from the chart) 20:49 19:31 sp3 cg
[2024-07-19] MEDS ORDERED: ACETAMINOPHEN 325 MG TABLET PO PRN (20:31)
[2024-07-19] MEDS ORDERED: ONDANSETRON 4 MG (ODT) TAB PO PRN (20:31)
[2024-07-19] MEDS ORDERED: ZOLPIDEM TARTRATE 5 MG TABLET PO PRN (20:31)
--- NOTE | 2024-07-19 20:46 | P.HP ---
Certification for Inpatient Patient admitted to: Observation With expected LOS: <2 Midnights Practitioner: I am a practitioner with admitting privileges, knowledge of patient current condition, hospital course, and medical plan of care. Services: Services provided to patient in accordance with Admission requirements found in Title 42 Section 412.3 of the Code of Federal Regulations Patient History Date of Service: 07/19/24 Reason for admission: atrial fibrillation History of Present Illness: 64-year-old man with a past medical history significant for atrial fibrillation, depression, and neuropathy presented to the emergency department [facility] complaining of chest pain and palpitations. Patient states he was diagnosed with atrial fibrillation in 2019 and underwent an ablation in 2020 that he states "did not take". The patient also admits to not being medication compliant with his Coumadin since 2020. He states he has not been on any anticoagulant since 2020. The patient denies a stroke history. He states his chest pain began a month ago and is intermittent. CARMEN-VASC score of 1. The patient has not attempted anything to alleviate his chest pain. Does not have a flatbed truck driver. The patient admits to being an everyday smoker, and currently smokes 3 packs a week. Home medications list reviewed: Yes (duloxetine, Abilify, Tegretol, ibuprofen) - Past Medical/Surgical History Diabetic: No -: Depression -: Neuropathy -: Atrial Fibrillation -: right leg repair age 18 -: appendectomy "70s" -: ablation 2020 - Social History Smoking Status: Current every day smoker (3 packs per week) Counseled patient to stop smoking for: less than 10 minutes Alcohol use: No Review of Systems Cardiovascular: Chest Pain, Palpitations Gastrointestinal: No Distention Musculoskeletal: Back Pain Physical Examination - Vital Signs Temperature: 98 F Blood Pressure: 127/85 Pulse: 108 Respirations: 18 - Physical Exam General: Alert, Oriented x3 HEENT: Atraumatic, Normocephalic Neck: JVD not distended Respiratory: Clear to auscultation bilaterally Cardiovascular: No gallops, No rubs, No murmurs Gastrointestinal: Normal bowel sounds, Non-distended Musculoskeletal: No swelling, No tenderness Neurological: Normal strength at 5/5 x4 extr, Sensation intact - Studies Laboratory Data (last 24 hrs) 07/19/24 07/19/24 07/19/24 18:55 16:50 16:50 WBC 7.20 Hgb 13.5 L Hct 41.7 Plt Count 221 PT 11.7 INR 1.05 Sodium 138 Potassium 3.9 BUN 20 H Creatinine 1.12 Glucose 114 H Magnesium 2.3 Total Bilirubin 0.2 AST 15 ALT 30 Alkaline Phosphatase 103 Assessment and Plan - Problems (Diagnosis) (1) Atrial fibrillation Current Visit: Yes Status: Acute - Plan Atrial fibrillation-admit for observation of chest pain with telemetry. Metoprolol t 25 mg twice daily ordered. Echo ordered. Cardiology consulted. Patient should continue with Lovenox. TSH pending. - Advance Directives Does patient have a Living Will: No Does patient have a Durable POA for Healthcare: No - Code Status/Comfort Care Code Status: Full Code
[2024-07-19 23:55] VITALS: BMI 30.9
[2024-07-20 05:32] LABS: PT Prothrombin Time 11.9 SECONDS (9.4-12.5); PTT, Activated Partial Thromb 35.1 SECONDS (24.3-36.9); Protime INR 1.06
[2024-07-20] MEDS: METOPROLOL TAR 25 MG TAB PO SCH (05:37)
[2024-07-20 06:00] LABS: Magnesium 2.3 mg/dL (1.6-2.4); Phosphorus 3.1 mg/dL (2.5-4.9); Thyroid Stimulating Hormone 3.22 uIU/mL (0.358-3.740); Troponin High Sensitivity 24.6 pg/mL (<58.9)
[2024-07-20] MEDS: FLU (Fluarix Triv) TS24-25(6MOS UP)/PF 45 MCG/0.5 ML Syringe IM ONE (08:34)
[2024-07-20] MEDS: ENOXAPARIN 40 MG/0.4 ML SQ SCH (08:35)
[2024-07-20] MEDS: ASPIRIN EC 81 MG TAB PO SCH (08:35)
[2024-07-20] MEDS ORDERED: IBUPROFEN 600 MG TAB PO PRN (08:55)
[2024-07-20] MEDS ORDERED: ALBUTEROL INHALER 200 PUFF/6.7 GM IH PRN (08:55)
[2024-07-20] MEDS: ARIPiprazole 5 MG TAB PO SCH (09:00)
[2024-07-20] MEDS: DULOXETINE 30 MG CAP PO SCH (09:00)
[2024-07-20] MEDS: carBAMazepine 200 MG TAB PO SCH (09:00)
--- NOTE | 2024-07-20 09:17 | P.PN ---
Date of Service: 07/20/24 Subjective: No further episodes of chest pain overnight Still in A-fib rate around 90 ROS: 10 point ROS as noted above, otherwise negative Physical exam GEN: Alert, oriented, NAD HEENT: Normal conjunctiva, sclera anicteric CV: A-fib rate in the 90s, no edema Pulm: Nonlabored respirations on room air ABD: Soft, nontender, nondistended MSK: No joint tenderness Integumentary: No rashes Neuro: Normal speech, normal affect Vitals reviewed Assessment: Chest pain rule out ACS Chronic atrial fibrillation Bipolar disease DJD Plan: Chest pain rule out ACS Chronic atrial fibrillation Cardiology consultation, monitor on telemetry Continue to trend troponins, negative so far Reports stress test many years ago, has never had a heart cath Was previously on Coumadin for his A-fib, stopped taking it about a year ago due to side effects Low [id number] score, continue daily aspirin for now Appreciate further input from cardiology Bipolar disease DJD Continue home medications DVT PPX: Lovenox Code status: Lead Printer Spent Managing Pts Care (In Minutes): 35
[2024-07-20 11:00] LABS: Specific Gravity 1.014 (1.005-1.030); Sqamous Epithelial <5 /HPF (None Seen); Urine Bacteria None Seen /HPF (<20); Urine Bilirubin NEGATIVE (Negative); Urine Blood Negative (Negative); Urine Clarity Clear (Clear); Urine Color Light-Yellow (Yellow); Urine Culture Reflex Order NOT NEEDED; Urine Glucose NEGATIVE (Negative); Urine Ketones NEGATIVE (Negative); Urine Microscopic Reflex YN ORDER UMIC; Urine Mucus Slight /HPF (None Seen); Urine Nitrite NEGATIVE (Negative); Urine Protein NEGATIVE (Negative); Urine RBC None Seen /HPF (None Seen); Urine Sperm Present (None Seen); Urine Urobilinogen Normal (Normal); Urine WBC <5 /HPF (<5); Urine WBC Clump Rare /HPF (None Seen)
[2024-07-20 11:02] VITALS: O2SAT 97
--- NOTE | 2024-07-20 12:20 | P.CNS ---
Date of Consult: 07/20/24 Chief Complaint: atrial fibrillation History of Present Illness: Patient with PMH of Bipolar, atrial fibrillation s/p ablation in 2020, presented with palpitations and chest pressure sensation, denies any other cardiac symptoms Allergies codeine Allergy (Verified 07/19/24 20:47) Anaphylaxis Home medications list reviewed: Yes Home Medications: Albuterol Inhaler [Ventolin Inhaler*] 2 puff PO Q6HR PRN 07/19/24 Aripiprazole [Abilify] 10 mg PO DAILY 07/19/24 Duloxetine HCl 60 mg PO DAILY 07/19/24 Ibuprofen [Ibu] 600 mg PO PRN PRN 07/19/24 carBAMazepine [Carbamazepine] 400 mg PO DAILY 07/19/24 - Past Medical/Surgical History Diabetic: No -: Depression -: Neuropathy -: Atrial Fibrillation -: right leg repair age 18 -: appendectomy "70s" -: ablation 2020 - Family History Brother Medical History: Diabetes - Social History Smoking Status: Current every day smoker Alcohol use: No CD- Drugs: No Caffeine use: Yes Place of Residence: Home Review of Systems 10-point ROS is otherwise unremarkable Physical Examination Temp Pulse Resp BP Pulse Ox 97.5 F 96 H 16 108/70 98 07/20/24 08:00 07/20/24 08:00 07/20/24 08:00 07/20/24 08:00 07/20/24 08:00 General: Alert, In no apparent distress HEENT: Atraumatic, PERRLA, Mucous membr. moist/pink, EOMI, Sclerae nonicteric Neck: Supple, 2+ carotid pulse no bruit, No LAD, Without JVD or thyroid abnormality Respiratory: Clear to auscultation bilaterally, Normal air movement Cardiovascular: Irregular heart rate/rhythm Gastrointestinal: Normal bowel sounds, No tenderness Musculoskeletal: No tenderness Integumentary: No rashes Neurological: Normal gait, Normal speech, Normal tone, Normal affect Lymphatics: No axilla or inguinal lymphadenopathy Laboratory Data (last 24 hrs) 07/19/24 07/19/24 07/19/24 18:55 16:50 16:50 WBC 7.20 Hgb 13.5 L Hct 41.7 Plt Count 221 PT 11.7 INR 1.05 Sodium 138 Potassium 3.9 BUN 20 H Creatinine 1.12 Glucose 114 H Magnesium 2.3 Total Bilirubin 0.2 AST 15 ALT 30 Alkaline Phosphatase 103 - Problems (1) Atrial fibrillation Current Visit: Yes Status: Acute Plan: History of prior ablation in 2020, was on Coumadin in the past but stopped due to side effects, explained multiple stratgies to control AF but he want rate control for now and go home and will follow up as outpatient. Continue Lopressor 25 mg po BID Continue ASA 81 mg daily (low CHADDSVASC score of 1) (2) Chest pain Current Visit: Yes Status: Acute Plan: troponin negative, most likely secondary to AF outpatient echo and stress test. ASA 81 mg daily.
[2024-07-20 12:30] VITALS: BP 116/88; TEMP 98
--- NOTE | 2024-07-20 15:04 | P.DS ---
Admission Date: 07/19/24 Discharge Date: 07/20/24 Disposition: ROUTINE DISCHARGE Discharge Condition: GOOD Reason for Admission: atrial fibrillation Brief History of Present Illness: 64-year-old man with a past medical history significant for atrial fibrillation, depression, and neuropathy [facility] complaining of chest pain and palpitations. Patient states he was diagnosed with atrial fibrillation in 2019 and underwent an ablation in 2020 that he states "did not take". The patient also admits to not being medication compliant with his Coumadin since 2020. He states he has not been on any anticoagulant since 2020. The patient denies a stroke history. He states his chest pain began a month ago and is intermittent. CARMEN-VASC score of 1. The patient has not attempted anything to alleviate his chest pain. 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 The patient admits to being an everyday smoker, and currently smokes 3 packs a week. Hospital Course: Assessment: Chest pain rule out ACS Chronic atrial fibrillation Bipolar disease DJD 64-year-old male with history of chronic atrial fibrillation, depression, neuropathy presented to the emergency department for chest pain, palpitations. He was observed in the hospital for night, his troponins were negative and trended flat. His A-fib was rate controlled on the metoprolol which he was started on with a rate between 70s and 90s. He was seen by cardiology who discussed multiple rate controlling/cardioversion options with patient although he elected to proceed with just rate control at this time and outpatient follow- up. His [id number] score is currently 1, it was recommended he take a daily baby aspirin at discharge to reduce his risk of stroke. Prescription for metoprolol 25 mg by mouth twice daily sent to [facility] Patient will need to get aspirin 81 mg [id number] to take daily which was discussed with him Continue other home medications as previously prescribed Follow-up with cardiology outpatient for further management of the A-fib and arrangement for outpatient stress test Vital Signs/Physical Exam: Temp Pulse Resp BP Pulse Ox 98.0 F 104 H 16 116/88 98 07/20/24 12:00 07/20/24 12:00 07/20/24 12:00 07/20/24 12:00 07/20/24 12:00 General: Alert, In no apparent distress, Oriented x3 HEENT: Atraumatic, PERRLA, EOMI Neck: Supple, JVD not distended Respiratory: Clear to auscultation bilaterally, Normal air movement Cardiovascular: Normal S1 S2, Irregular heart rate/rhythm (Afib, rate 70s-90s) Gastrointestinal: Normal bowel sounds, No tenderness Musculoskeletal: No tenderness Integumentary: No rashes Neurological: Normal speech, Normal affect Laboratory Data at Discharge: WBC 7.20 thou/uL (4.3-10.9) 07/19/24 16:50 Hgb 13.5 g/dL (13.6-17.9) L 07/19/24 16:50 Hct 41.7 % (39.6-49.0) 07/19/24 16:50 Plt Count 221 thou/uL (152-406) 07/19/24 16:50 PT 11.9 SECONDS (9.4-12.5) 07/20/24 04:58 INR 1.06 07/20/24 04:58 APTT 35.1 SECONDS (24.3-36.9) 07/20/24 04:58 Sodium 140 mEq/L (136-145) 07/20/24 04:58 Potassium 4.0 mEq/L (3.5-5.1) 07/20/24 04:58 BUN 16 mg/dL (7-18) 07/20/24 04:58 Creatinine 0.96 mg/dL (0.70-1.30) 07/20/24 04:58 Glucose 118 mg/dL (74-106) H 07/20/24 04:58 Phosphorus 3.1 mg/dL (2.5-4.9) 07/20/24 04:58 Magnesium 2.3 mg/dL (1.6-2.4) 07/20/24 04:58 Total Bilirubin 0.2 mg/dL (0.2-1.0) 07/19/24 18:55 AST 15 U/L (15-37) 07/19/24 18:55 ALT 30 U/L (16-61) 07/19/24 18:55 Alkaline Phosphatase 103 U/L (45-117) 07/19/24 18:55 Triglycerides 97 mg/dL (<150) 07/20/24 04:58 Cholesterol 157 mg/dL (<200) 07/20/24 04:58 HDL Cholesterol 51 mg/dL (40-60) 07/20/24 04:58 Cholesterol/HDL Ratio 3.08 07/20/24 04:58 Home Medications: Albuterol Inhaler [Ventolin Inhaler*] 2 puff PO Q6HR PRN 07/19/24 Aripiprazole [Abilify] 10 mg PO DAILY 07/19/24 Duloxetine HCl 60 mg PO DAILY 07/19/24 Ibuprofen [Ibu] 600 mg PO PRN PRN 07/19/24 carBAMazepine [Carbamazepine] 400 mg PO DAILY 07/19/24 Metoprolol Tartrate [Lopressor*] 25 mg PO BID #60 tab 07/20/24 New Medications: Metoprolol Tartrate [Lopressor*] 25 mg PO BID #60 tab Physician Discharge Instructions: 64-year-old male with history of chronic atrial fibrillation, depression, neuropathy presented to the emergency department for chest pain, palpitations. He was observed in the hospital for night, his troponins were negative and trended flat. His A-fib was rate controlled on the metoprolol which he was started on with a rate between 70s and 90s. He was seen by cardiology who discussed multiple rate controlling/cardioversion options with patient although he elected to proceed with just rate control at this time and outpatient follow- up. His [id number] score is currently 1, it was recommended he take a daily baby aspirin at discharge to reduce his risk of stroke. Prescription for metoprolol 25 mg by mouth twice daily sent to [facility] Patient will need to get aspirin 81 mg [id number] to take daily which was discussed with him Continue other home medications as previously prescribed Follow-up with cardiology outpatient for further management of the A-fib and arrangement for outpatient stress test Diet: Regular Activity: Fall precautions Followup: [facility]OT[facility] [Primary Care Provider] - Time spent managing pt's care (in minutes): 45
--- NOTE | 2024-07-21 14:55 | EKG ---
Test Date: 2024-07-19 Test Time: 16:50:11 Masonry Supervisor: PH MEASUREMENT RESULTS: Intervals: Rate: 99 MS: QRSD: 90 QT: 368 QTc: 472 Thayer: P: MS: QRS: -61 T: 29 INTERPRETIVE STATEMENTS: Atrial fibrillation Pulmonary disease pattern Left anterior fascicular block Nonspecific T wave abnormality Prolonged QT Abnormal ECG No previous ECG available for comparison Electronically Signed On 07-21-24 14:47:55 CDT by Donny Hinson
== END 2024-07-20 15:49 | disposition home or self-care (01) ==
LOC: ER 15:29 → ERHOLD 20:31 → 2ND 22:13
PROVIDERS: ADMIT Internal Medicine; ATTEND Internal Medicine
DX: I48.11 Longstanding persistent atrial fibrillation (principal); R07.9 Chest pain, unspecified; F17.210 Nicotine dependence, cigarettes, uncomplicated; F32.A Depression, unspecified; G62.9 Polyneuropathy, unspecified; F31.9 Bipolar disorder, unspecified; M19.90 Unspecified osteoarthritis, unspecified site; Z88.5 Allergy status to narcotic agent; Z23 Encounter for immunization
CPT/HCPCS: 93005; 85025; 81001; 80048 ×2; 36415 ×2; 83735 ×2; 82550; 80156 ×2; 84100; 85610 ×2; 80061; 80076; 85730; 84443; 84484 ×3; 83880 ×2; 71045; 94760; J1650 ×2; 96372; 99285; G0378

== ENCOUNTER 2025-06-25 18:39 | Emergency (ER) | payer OTHER ==
[2025-06-25] MEDS ORDERED: ONDANSETRON 4 MG/2 ML VIAL ONE (18:51)
[2025-06-25 18:55] LABS: Absolute Lymphocytes (CBC) 3.1 K/uL (0.7-4.9); Hematocrit 39.5 % (39.6-49.0); Hemoglobin 12.9 g/dL (13.6-17.9); MCH 26.8 pg (27.0-35.0); MCHC 32.8 g/dL (32.0-36.0); MCV 81.9 fL (80-100); MPV 7.3 fL (7.6-11.3); Nucleated RBC Absolute Count 0.0 (0-0); Nucleated Red Blood Cells % 0.0 % (0-0); RBC Red Blood Cell Count 4.82 M/uL (4.33-5.43); White Blood Count 8.90 thou/uL (4.3-10.9)
[2025-06-25 19:00] LABS: PT Prothrombin Time 11.7 SECONDS (10-13.0); PTT, Activated Partial Thromb 28.5 SECONDS (27.2-37.4); Protime INR 1.04
[2025-06-25 19:11] LABS: ALT/SGPT 31.0 U/L (16-61); AST/SGOT 23.0 U/L (15-37); Albumin 3.2 g/dL (3.4-5.0); Albumin/Globulin Ratio 0.9 (1.1-1.8); Alkaline Phosphatase 101.0 U/L (45-117); Anion Gap 8.4 mEq/L (5.0-15.0); BUN Blood Urea Nitrogen 20.0 mg/dL (7-18); Globulin 3.4 g/dL (2.3-3.5); Glucose Level 141.0 mg/dL (74-106); Lipase 28.0 U/L (13-75); NT PRO-BNP 63.0 pg/mL (<125); Potassium 3.4 mEq/L (3.5-5.1); Troponin High Sensitivity 9.1 pg/mL (<58.9)
[2025-06-25 19:18] LABS: Blood O2 Saturation 95.2 % (92.0-98.5)
--- NOTE | 2025-06-25 19:26 | RAD REPORT ---
EXAM: CT brain without contrast HISTORY: Confusion/declining state COMPARISON: None TECHNIQUE: Multiple contiguous axial images were obtained and a CT of the brain without contrast.. Sagittal and coronal reconstruction performed. Automated exposure control, adjustment of the mA and/or kV according to patient size, and/or iterative reconstruction. Unless otherwise specified, incidental f indings do not require dedicated imaging follow-up FINDINGS: An intracranial bleed is not seen Ventricles are normal caliber No extra-axial fluid collection noted No significant hypodensity within the brain No fluid within the visualized sinuses or mastoids noted. IMPRESSION: No acute intracranial abnormality noted. If the patient continues to have symptoms to suggest an acute intracranial abnormality then MRI of th e brain would be recommended.
--- NOTE | 2025-06-25 19:39 | RAD REPORT ---
EXAM: Chest Abdomen Pelvis W Cont CLINICAL INDICATION: Chest and abdominal pain TECHNIQUE: CT chest, abdomen and pelvis was performed, with 100 cc Isovue-300 IV contrast, as per de partment protocol. Axial, sagittal and coronal reconstructions were obtained. One or more of the following dose reduction techniques were used: Automated exposure control, adjustment of the mA and/o r kV according to the patient size, and/or iterative reconstruction. Unless otherwise specified, incidental findings do not require dedicated imaging follow-up. [id number]. Oral contrast not given. This limits evaluation of the bowel. COMPARISON: None FINDINGS: A few areas of scarring or subsegmental atelectasis are present within the left lower lobe. Distal right clavicle is absent. This is unchanged from June 2024 chest x-ray. No pleural effusion.. No pericardial effusion Several tiny low-density lesions within the liver nonspecific but probably benign. The spleen, pancreas, adrenals, right kidney unremarkable. 2.2 cm isodense structure midpole left kidney. Density is similar to remainder of the left kidney. Post surgical changes right hip There is no evidence of diverticulitis IMPRESSION: 2.2 cm isodense structure left kidney likely a hypertrophied column of Jamie. Follow-up renal ultras ound in 3 months recommended for reevaluation No significant acute abnormality is displayed
[2025-06-25] MEDS ORDERED: carBAMazepine 200 MG TAB ONE (19:56)
[2025-06-25] MEDS ORDERED: NA CHLORIDE 0.9% 1,000 ML ONE ×2 (20:02)
[2025-06-25 21:04] LABS: Urine Microscopic Reflex YN NO UMIC
[2025-06-25 21:09] LABS: METHAMPHETAM POSITIVE (NEGATIVE); THC Cannibis NEGATIVE (NEGATIVE)
--- NOTE | 2025-06-25 22:07 | ER ---
Nurse's Notes [facility] Name: Tyler Staples Age: 65 yrs Sex: Male : 1960 Arrival Date: 06/25/2025 Time: 18:34 Bed IW9 Private MD: Diagnosis: Methamphetamine use disorder;Near syncopal episode Presentation: 06/25 18:35 Chief complaint: EMS states: toned out for unresponsive homeless male, found to be iw cool, diaphoretic , oriented X 2, slow to respond, vomiting, pt states he had one beer earlier today , hx of CABG. Coronavirus screen: At this time, the client does not indicate any symptoms associated with coronavirus-19. Ebola Screen: No symptoms or risks identified at this time. Risk Assessment: Do you want to hurt yourself or someone else? Patient reports no desire to harm self or others. 18:35 Method Of Arrival: EMS: [facility] iw 18:35 Acuity: ANDREZ 2 iw 18:36 Initial Sepsis Screen: Does the patient meet any 2 criteria? No. Patient's initial iw sepsis screen is negative. Does the patient have a suspected source of infection? No. Patient's initial sepsis screen is negative. 06/26 00:08 Onset of symptoms is unknown. tb4 Triage Assessment: 06/25 18:40 General: Appears ill, unkempt, Behavior is drowsy, listless. iw Historical: - Allergies: 18:36 Codeine; iw - PMHx: 18:50 Unable to Obtain; aa5 - Immunization history:: Adult Immunizations unknown. - Infectious Disease History:: unable to complete. - Social history:: Smoking status: unknown. Screenin:35 [facility] ED Fall Risk Assessment (Adult) History of falling in the last 3 months, nh2 including since admission Confusion or Disorientation Yes (5 pts) Intoxicated or Sedated Impaired Gait Mobility Assist Device Used Altered Elimination Score/Fall Risk Level 3 or more points = High Risk Oriented to surroundings, Maintained a safe environment, Educated pt \T\ family on fall prevention, incl call for assistance when getting out of bed, Assessed \T\ reinforced patient's understanding of fall precautions. 18:35 Abuse screen: unable to complete. Nutritional screening: unable to complete. nh2 Tuberculosis screening: unable to complete. Assessment: 18:34 General: Appears uncomfortable, ill, unkempt, Behavior is drowsy, quiet, Smells of nh2 alcohol. Pain: Unable to use pain scale. Patient is disoriented. Neuro: Level of Consciousness is lethargic, Oriented to none Moves all extremities. Speech is slurred, Facial symmetry appears normal. Cardiovascular: Rhythm is sinus rhythm. Respiratory: Airway is patent Trachea midline Respiratory effort is even, unlabored, Respiratory pattern is regular, symmetrical. GI: Abdomen is round non-distended. : No signs and/or symptoms were reported regarding the genitourinary system. EENT: No signs and/or symptoms were reported regarding the EENT system. Derm: Skin with poor turgor Skin is diaphoretic, Skin is pale. Musculoskeletal: Range of motion: intact in all extremities. 18:40 Reassessment: Pt to CT scan via stretcher. . aa5 18:40 Reassessment: patient accompanied by me to CT via stretcher on monitor. nh2 18:50 Neuro: Level of Consciousness is lethargic, Oriented to none. Respiratory: Airway is nh2 patent Respiratory effort is even, unlabored, Respiratory pattern is regular, symmetrical. Derm: Skin is pink, warm \T\ dry. Skin temperature is warm. 06/26 00:07 Reassessment: Patient is alert, oriented x 3, equal unlabored respirations, skin tb4 warm/dry/pink. Patient states feeling better. Patient states symptoms have improved. General: Appears in no apparent distress. Behavior is calm, cooperative. Pain: Denies pain. Neuro: Level of Consciousness is awake, alert, obeys commands, Oriented to person, place, time, situation, Fish Straightener are equal bilaterally Moves all extremities. Full function Gait is steady, Speech is normal, Facial symmetry appears normal. Respiratory: Airway is patent Respiratory effort is even, unlabored, Respiratory pattern is regular, symmetrical. GI: No deficits noted. No signs and/or symptoms were reported involving the gastrointestinal system. : No deficits noted. No signs and/or symptoms were reported regarding the genitourinary system. Vital Signs: 06/25 18:36 BP 154 / 98; Pulse 66; Resp 16; Pulse Ox 97% on R/A; Weight 98.43 kg; Height 6 ft. 1 iw in. ; 20:00 BP 139 / 79; Pulse 81; Resp 19; Pulse Ox 100% on R/A; tb4 21:09 BP 169 / 87; Pulse 74; Resp 18; Pulse Ox 100% on R/A; Pain 0/10; tb4 22:00 BP 154 / 77; Pulse 82; Resp 19; Pulse Ox 98% on R/A; Pain 0/10; tb4 23:00 BP 149 / 82; Pulse 77; Resp 20; Temp 98.4(O); Pulse Ox 100% ; Pain 0/10; tb4 10 00:06 BP 147 / 69; Pulse 71; Resp 17; Pulse Ox 100% on R/A; tb4 06/25 18:36 Body Mass Index 28.63 (98.43 kg, 185.42 cm) iw 21:09 Pain Scale: Adult tb4 22:00 Pain Scale: Adult tb4 23:00 Pain Scale: Adult tb4 Grace Coma Score: 06/25 22:06 Eye Response: spontaneous(4). Motor Response: obeys commands(6). Verbal Response: sp4 oriented(5). Total: 15. NIH Stroke Scale Scores: 22:06 NIHSS Score: 0 sp4 ED Course: 18:34 Patient arrived in ED. em1 18:34 Chaparro Torres MD is Attending Physician. sp3 18:36 Triage completed. iw 18:40 Patient placed in an exam room, on a stretcher, on crossing watchman, on pulse oximetry. iw EKG completed in triage. Results shown to MD. 18:40 Patient has correct armband on for positive identification. Placed in gown. Bed in low aa5 position. Call light in reach. Side rails up X2. Client placed on continuous cardiac and pulse oximetry monitoring. NIBP monitoring applied. sales special agent on. Pulse ox on. NIBP on. 18:46 Initial lab(s) drawn, by me, sent to lab. EKG done, by ED staff, reviewed by Chaparro Torres MD. Maintain EMS IV. Dressing intact. Good blood return noted. Site clean \T\ dry. Gauge \T\ site: 18 LAC. Flushed with 10 mL NS. 18:52 CT Head Brain wo Cont In Process Unspecified. EDMS 18:52 CT Chest, Abdomen, Pelvis - W/Contrast In Process Unspecified. EDMS 18:58 Attending Physician role handed off by Chaparro Torres MD sp4 18:58 Henri Jang MD is Attending Physician. sp4 19:00 Report given to LOLIS Sims and LOLIS Soliz. nh2 20:00 No provider procedures requiring assistance completed. tb4 21:09 Inserted saline lock: 22 gauge in right forearm, using aseptic technique. Blood tb4 collected. Flushed with 10 mL NS. 22:06 Gómez Gates RN is Hospitalizing Provider. sp4 22:06 Hospitalizing Provider role handed off by Gómez Gates RN sp4 22:06 James Glass MD is Hospitalizing Provider. sp4 06/26 00:07 IV discontinued, intact, bleeding controlled, No redness/swelling at site. Pressure tb4 dressing applied. 00:08 Provided Education on: Follow up with primary care. tb4 Administered Medications: 06/25 20:02 Drug: carBAMazepine PO 200 mg PO once Route: PO; tb4 21:08 Follow up: Response: No adverse reaction tb4 20:06 Drug: Ondansetron IVP 4 mg IVP once; over 2 minutes Route: IVP; Site: left antecubital; tb4 06/26 00:04 Follow up: Response: No adverse reaction tb4 06/25 20:12 Drug: NS 0.9% IV 1000 ml IV at 1000 ml once; to be given as a bolus over 60 minutes tb4 Route: IV; Rate: 1000 ml; Site: left antecubital; 21:08 Follow up: Response: No adverse reaction; IV Status: Completed infusion tb4 21:08 Drug: NS 0.9% IV 1000 ml IV at 250 ml/hr once; to be given at 250 ml / hours Route: IV; tb4 Rate: 250 ml/hr; Site: left antecubital; 23:51 Follow up: Response: No adverse reaction; IV Status: Completed infusion tb4 Medication: 20:00 VIS not applicable for this client. tb4 Outcome: 22:06 Decision to Hospitalize by Provider. sp4 23:06 Discharge ordered by . sp4 06/26 00:09 Discharged to home ambulatory, tb4 Condition: stable Discharge instructions given to patient, Instructed on discharge instructions, follow up and referral plans. Demonstrated understanding of instructions, follow-up care, 00:09 Patient left the ED. tb4 NIH Stroke Scale - NIH Stroke Score Date: 06/25/2025 Time: 22:06 Total Score = 0 10. Dysarthria (speech clarity - read or repeat words) - 0(Normal) 11. Extinction and Inattention (visual/tactile/auditory/spatial/personal) - 0(No abnormality) 1a. Level of Consciousness (LOC) - 0(Alert) 1b. Level of Consciousness (LOC) (Month \T\ Age) - 0(Both) 1c. LOC Commands (Open \T\ Closes Eyes/Hot Worker) - 0(Both) 2. Best Gaze (Lateral Gaze Paresis) - 0(Normal) 3. Visual Field Loss - 0(No visual loss) 4. Facial Palsy - 0(Normal) 5a. Left Arm: Motor (10-second hold) - 0(No drift) 5b. Right Arm: Motor (10-second hold) - 0(No drift) 6a. Left Leg: Motor (5-second hold - always test supine) - 0(No drift) 6b. Right Leg: Motor (5-second hold - always test supine) - 0(No drift) 7. Limb Ataxia (finger/nose \T\ heel/reis - test with eyes open) - 0(Absent) 8. Sensory Loss (pinprick arms/legs/face) - 0(Normal) 9. Best Language: Aphasia (description/naming/reading) - 0(No aphasia) Initials: sp4 Signatures: Dispatcher [employer] Arlene Victor, RN Massimo Gardner em1 Marlee Jim RN RN aa5 Chaparro Torres MD MD sp3 Henri Jang MD MD sp4 Juan Way Jr, RN RN nh2 Heydi Collier RN RN tb4 Corrections: (The following items were deleted from the chart) 06/25 19:24 18:34 Neuro: Level of Consciousness is lethargic, Oriented to none nh2 nh2
--- NOTE | 2025-06-25 22:07 | EDPHYS ---
Physician Documentation [facility] Name: Tyler Staples Age: 65 yrs Sex: Male : 1960 Arrival Date: 06/25/2025 Time: 18:34 Bed IW9 Private MD: ED Physician Henri Jang HPI: 06/25 18:42 This 65 yrs old Male presents to ER via EMS with complaints of Altered Mental Status, sp3 vomiting. 18:42 65-year-old male with history of seizure disorder, hypertension, CAD status post CABG sp3 presents to the ED via EMS for altered mental status, vomiting and now decreased speech while and route. Patient is unhoused and was outside of a local store where bystanders picked up on his symptoms. Patient has had several episodes of emesis and route to the ED. Based on his prior visit approximately 1 year ago where he was seen by me, he was on Tegretol for seizures at that time. Patient is unable to tell us his current medications. Limited ROS, history and physical secondary to his altered mental status. All history per EMS.. Historical: - Allergies: 18:36 Codeine; iw - PMHx: 18:50 Unable to Obtain; aa5 - Immunization history:: Adult Immunizations unknown. - Infectious Disease History:: unable to complete. - Social history:: Smoking status: unknown. ROS: 18:45 Unable to obtain ROS due to altered mental status, sp3 22:07 Constitutional: Negative for fever, chills, and weight loss, positive for mental status sp4 change 22:07 All other systems are negative, Exam: 18:45 Constitutional: This is a well developed, well nourished patient who is awake, alert, sp3 and in no acute distress. Head/Face: Normocephalic, atraumatic. Eyes: Pupils equal round and reactive to light, extra-ocular motions intact. Lids and lashes normal. Conjunctiva and sclera are non-icteric and not injected. Cornea within normal limits. Periorbital areas with no swelling, redness, or edema. Neck: Trachea midline, no thyromegaly or masses palpated, and no cervical lymphadenopathy. Supple, full range of motion without nuchal rigidity, or vertebral point tenderness. No Meningismus. Chest/axilla: Normal chest wall appearance and motion. Nontender with no deformity. No lesions are appreciated. Cardiovascular: Regular rate and rhythm with a normal S1 and S2. No gallops, murmurs, or rubs. Normal PMI, no JVD. No pulse deficits. Respiratory: Lungs have equal breath sounds bilaterally, clear to auscultation and percussion. No rales, rhonchi or wheezes noted. No increased work of breathing, no retractions or nasal flaring. Back: No spinal tenderness. No costovertebral tenderness. Full range of motion. Skin: Warm, dry with normal turgor. Normal color with no rashes, no lesions, and no evidence of cellulitis. MS/ Extremity: Pulses equal, no cyanosis. Neurovascular intact. Full, normal range of motion. 18:45 Abdomen/GI: Active vomiting noted. No coffee grounds or mucus material in the emesis. Abdomen is soft and nondistended. Chest and lung exam are benign. No obvious defects from a neurological standpoint as patient moves all extremities. However his mental status is decreased and his speech is not slurred however he is slow to respond and not finishing his sentences., 18:45 Unable to obtain exam due to altered mental status, 18:48 ECG was reviewed by the Attending Physician. EKG demonstrates normal sinus rhythm at 70 sp3 bpm with normal intervals, normal QRS, slightly leftward axis and nonspecific ST/T changes without evidence of acute ischemia. Vital Signs: 18:36 BP 154 / 98; Pulse 66; Resp 16; Pulse Ox 97% on R/A; Weight 98.43 kg; Height 6 ft. 1 iw in. ; 20:00 BP 139 / 79; Pulse 81; Resp 19; Pulse Ox 100% on R/A; tb4 21:09 BP 169 / 87; Pulse 74; Resp 18; Pulse Ox 100% on R/A; Pain 0/10; tb4 22:00 BP 154 / 77; Pulse 82; Resp 19; Pulse Ox 98% on R/A; Pain 0/10; tb4 23:00 BP 149 / 82; Pulse 77; Resp 20; Temp 98.4(O); Pulse Ox 100% ; Pain 0/10; tb4 06/26 00:06 BP 147 / 69; Pulse 71; Resp 17; Pulse Ox 100% on R/A; tb4 06/25 18:36 Body Mass Index 28.63 (98.43 kg, 185.42 cm) iw 21:09 Pain Scale: Adult tb4 22:00 Pain Scale: Adult tb4 23:00 Pain Scale: Adult tb4 NIH Stroke Scale Scores: 10 22:06 NIHSS Score: 0 sp4 Grace Coma Score: 22:06 Eye Response: spontaneous(4). Motor Response: obeys commands(6). Verbal Response: sp4 oriented(5). Total: 15. MDM: 18:34 Medical Screening Exam initiated sp3 18:46 Data reviewed: vital signs, nurses notes, old medical records, lab test result(s), EKG, sp3 radiologic studies. ED course: 65-year-old male with PMH above now with altered mental status and vomiting noted. Differential diagnosis includes seizure, postictal period, other intracranial pathology, acute coronary syndrome, viral illness, primary gastritis, among others. Workup will include CT scan of the head noncontrast, CT scan of the chest abdomen and pelvis with IV contrast, routine labs, cultures and sepsis workup and treatment with IV fluids and ondansetron IV for now. Further medications and workup will be layered on as indicated. Patient will be signed out to nighttime physician for final reevaluation and final disposition.. 20:02 Differential Diagnosis: electrolyte abnormality, alcohol intoxication, hypoglycemia, sp4 pneumonia, seizure, sepsis, TIA. Consideration of Admission/Observation Escalation of care including admission/observation considered. ED course: FINDINGS: An intracranial bleed is not seen Ventricles are normal caliber No extra-axial fluid collection noted No significant hypodensity within the brain No fluid within the visualized sinuses or mastoids noted. IMPRESSION: No acute intracranial abnormality noted. . ED course: Oral contrast not given. This limits evaluation of the bowel. COMPARISON: None FINDINGS: A few areas of scarring or subsegmental atelectasis are present within the left lower lobe. Distal right clavicle is absent. This is unchanged from June 2024 chest x-ray. No pleural effusion.. No pericardial effusion Several tiny low-density lesions within the liver nonspecific but probably benign. The spleen, pancreas, adrenals, right kidney unremarkable. 2.2 cm isodense structure midpole left kidney. Density is similar to remainder of the left kidney. Post surgical changes right hip There is no evidence of diverticulitis IMPRESSION: 2.2 cm isodense structure left kidney likely a hypertrophied column of Jamie. Follow-up renal ultrasound in 3 months recommended for reevaluation No significant acute abnormality is displayed. 22:05 Management of patient was discussed with the following: Hospitalist: Yajaira SHERIFF admission sp4 requested. Help Desk Operator: . ED course: Patient stable for admission. Appears to be mentally lucid. 23:09 ED course: Patient was evaluated by the hydro pneumatic tester who states patient at this time is sp4 stable for discharge home. Acute mental status changes probably secondary to methamphetamine abuse. Patient stable for discharge. 06/25 18:35 Order name: BNP; Complete Time: 19:52 sp3 06/25 18:35 Order name: Blood Culture Adult (2) sp3 06/25 18:35 Order name: CBC with Diff; Complete Time: 19:52 sp3 06/25 18:35 Order name: CMP; Complete Time: 19:52 sp3 06/25 18:35 Order name: Lactate w/ 2H reflex if indic.; Complete Time: 21:58 3 06/25 18:35 Order name: Protime (+inr); Complete Time: 19:52 3 06/25 18:35 Order name: Ptt, Activated; Complete Time: 19:52 sp3 06/25 18:35 Order name: Troponin HS; Complete Time: 19:52 sp3 06/25 18:35 Order name: ABG; Complete Time: 19:52 sp3 06/25 18:35 Order name: Lipase; Complete Time: 19:52 sp3 06/25 18:35 Order name: UA Rfx Manav Cult if indicated; Complete Time: 21:07 sp3 06/25 18:42 Order name: Tegretol Level; Complete Time: 19:52 3 06/25 19:59 Order name: Urine Drug Screen; Complete Time: 21:58 sp4 06/25 20:00 Order name: Alcohol Level; Complete Time: 21:58 4 06/25 18:35 Order name: CT Head Brain wo Cont; Complete Time: 19:52 sp3 06/25 18:35 Order name: CT Chest, Abdomen, Pelvis - W/Contrast; Complete Time: 19:52 3 06/25 18:35 Order name: EKG; Complete Time: 18:41 sp3 06/25 18:35 Order name: Cardiac monitoring; Complete Time: 18:36 sp3 06/25 18:35 Order name: EKG - Nurse/Tech; Complete Time: 18:36 sp3 06/25 18:35 Order name: IV Saline Lock - Large Bore; Complete Time: 18:36 sp3 06/25 18:35 Order name: Labs collected and sent; Complete Time: 18:36 sp3 06/25 18:35 Order name: O2 Per Protocol; Complete Time: 18:36 sp3 06/25 18:35 Order name: O2 Sat Monitoring; Complete Time: 18:36 sp3 06/25 18:35 Order name: Vital Signs; Complete Time: 18:36 sp3 Administered Medications: 20:02 Drug: carBAMazepine PO 200 mg PO once Route: PO; tb4 21:08 Follow up: Response: No adverse reaction tb4 20:06 Drug: Ondansetron IVP 4 mg IVP once; over 2 minutes Route: IVP; Site: left antecubital; tb4 06/26 00:04 Follow up: Response: No adverse reaction tb4 06/25 20:12 Drug: NS 0.9% IV 1000 ml IV at 1000 ml once; to be given as a bolus over 60 minutes tb4 Route: IV; Rate: 1000 ml; Site: left antecubital; 21:08 Follow up: Response: No adverse reaction; IV Status: Completed infusion tb4 21:08 Drug: NS 0.9% IV 1000 ml IV at 250 ml/hr once; to be given at 250 ml / hours Route: IV; tb4 Rate: 250 ml/hr; Site: left antecubital; 23:51 Follow up: Response: No adverse reaction; IV Status: Completed infusion tb4 Disposition Summary: 06/25/25 23:06 Discharge Ordered Notes: Location: Home(06/25/25 23:06) sp4 Problem: new(06/25/25 23:06) sp4 Symptoms: have improved(06/25/25 23:06) sp4 Condition: Stable(06/25/25 23:06) sp4 Diagnosis - Methamphetamine use disorder sp4 - Near syncopal episode sp4 Followup: sp4 - With: Private Physician - When: 7 - 10 days - Reason: Recheck today's complaints Discharge Instructions: - Discharge Summary Sheet sp4 - Methamphetamines Use Disorder sp4 Forms: - Patient Portal Instructions sp4 NIH Stroke Scale - NIH Stroke Score Date: 06/25/2025 Time: 22:06 Total Score = 0 10. Dysarthria (speech clarity - read or repeat words) - 0(Normal) 11. Extinction and Inattention (visual/tactile/auditory/spatial/personal) - 0(No abnormality) 1a. Level of Consciousness (LOC) - 0(Alert) 1b. Level of Consciousness (LOC) (Month \T\ Age) - 0(Both) 1c. LOC Commands (Open \T\ Closes Eyes/Press Operator Automatic) - 0(Both) 2. Best Gaze (Lateral Gaze Paresis) - 0(Normal) 3. Visual Field Loss - 0(No visual loss) 4. Facial Palsy - 0(Normal) 5a. Left Arm: Motor (10-second hold) - 0(No drift) 5b. Right Arm: Motor (10-second hold) - 0(No drift) 6a. Left Leg: Motor (5-second hold - always test supine) - 0(No drift) 6b. Right Leg: Motor (5-second hold - always test supine) - 0(No drift) 7. Limb Ataxia (finger/nose \T\ heel/reis - test with eyes open) - 0(Absent) 8. Sensory Loss (pinprick arms/legs/face) - 0(Normal) 9. Best Language: Aphasia (description/naming/reading) - 0(No aphasia) Initials: sp4 Signatures: Dispatcher [employer] EDArlene Wilder, RN LOLIS iw Marlee Jim RN RN aa5 Chaparro Torres MD MD sp3 Henri Jang MD MD sp4 Heydi Collier RN RN tb4 Corrections: (The following items were deleted from the chart) 18:41 18:41 PROBNP+C.LAB.BRZ ordered. EDMS EDMS 18:41 18:41 BLOOD CULTURE*+BA.LAB.BRZ ordered. EDMS EDMS 18:41 18:41 CBC+H.LAB.BRZ ordered. EDMS EDMS 18:41 18:41 COMPREHENSIVE METABOLIC PANEL+C.LAB.BRZ ordered. EDMS EDMS 18:41 18:41 LACTATE+C.LAB.BRZ ordered. EDMS EDMS 18:41 18:41 PROTIME (+INR)+COAG.LAB.BRZ ordered. EDMS EDMS 18:41 18:41 PTT, ACTIVATED+COAG.LAB.BRZ ordered. EDMS EDMS 18:41 18:41 Troponin High Sensitivity+C.LAB.BRZ ordered. EDMS EDMS 18:41 18:41 LIPASE+C.LAB.BRZ ordered. EDMS EDMS 18:41 18:41 UA Rfx Manav Cult if indicated+U.LAB.BRZ ordered. EDMS EDMS 20:00 20:00 ETHANOL+C.LAB.BRZ ordered. EDMS EDMS 23:06 22:06 Observation sp4 sp4 23:06 22:06 James Glass sp4 sp4 23:06 22:06 Telemetry/MedSurg (observation) sp4 sp4 23:06 22:06 Stable sp4 sp4 23:06 22:06 new sp4 sp4 23:06 22:06 have improved sp4 sp4 23:06 22:06 Standard sp4 sp4 23:06 22:06 sp4 sp4 23:06 22:06 Encephalopathy, unspecified sp4 sp4 23:06 22:06 Generalized weakness, syncopal episode sp4 sp4 06/26 00:04 06/25 18:35 Guillory ordered. sp3 tb4 06/26 00:05 06/25 18:35 Rectal Temp ordered. sp3 tb4
[2025-06-26 00:53] VITALS: TEMP 98.4; O2SAT 100
[2025-06-26 00:55] VITALS: BP 147/69
== END 2025-06-26 00:09 | disposition home or self-care (01) ==
LOC: ER 18:39
DX: F15.90 Other stimulant use, unspecified, uncomplicated (principal); R55 Syncope and collapse; R11.10 Vomiting, unspecified; I10 Essential (primary) hypertension; G40.909 Epilepsy, unspecified, not intractable, without status epilepticus; Z95.1 Presence of aortocoronary bypass graft
CPT/HCPCS: 96361; 93005; 87040 ×2; 85025; 36415; 80156; 85610; 83605; 85730; 81003; 84484; 83690; 80053; 83880; 80307; 70450; 71260; 74177; 96374; 99285; 82077; 82805; 36600; Q9967; J2405; J7030 ×2